=== PATIENT | male | born 1935 | race Caucasian/White ===

== ENCOUNTER → 2016-04-02 | Outpatient (CLI) | payer OTHER ==
[~2016-04-02] VITALS: Ht 182.9 cm; Wt 111.1 kg
[~2016-04-02] MED LIST: ACETAMINOPHEN-1 EAC1 PO; ALLOPURINOL 30300 M2 PO; AMARYL4 MG PO; ASPIR 8181 M1 PO; CALCIUM500 MG PO; CARVEDILOL12.5 MG PO; DIOVAN 80 MG TA80 M1 PO; DIOVAN320 MG PO; IBUPROFEN 600600 M1 PO; IRON325 PO; LASIX 20 MG TAB20 MG PO; LEVEMIR FL100 UNIT/2 SQ; METFORMIN HCL500 MG PO; NORCO 5-325 TA1 EACH PO; PLAVIX 75 MG TA75 M1 PO; POTASSIUM20 PO; SIMVASTATIN40 MG PO
--- NOTE | ~2016-04-02 | P ---
[facility] [place] [address] PROCEDURE REPORT Name: IRMA BLANCAS Room #: REG [facility].#: [id number] Admission: 04/02/16 Attend Phys: Paul Zhu MD Discharge: Date of : 34 Report #: [id number] THIS REPORT FOR: //name// CC: Alan Zhu PROCEDURE: ICD generator exchange. HISTORY OF PRESENT ILLNESS: The patient is an 80-year-old with history of ICD, his device is at [facility] who is here for generator exchange. ANESTHESIA: The patient underwent MAC anesthesia with no anesthesia related complications. DESCRIPTION OF PROCEDURE: The patient underwent informed consent. We discussed the details of the procedure including the risks, which include, but not limited to bleeding, infection, vascular damage, need for possible lead revisions. He understood these risks and is willing to proceed. The patient was brought to the EP laboratory in a fasting and sedated state and prepped and draped in a sterile fashion, received IV antibiotics. I injected lidocaine at the prior incision site. Incision was made and the pocket was opened, the old device was removed and disconnected from the device. A new device was connected and found to be functioning normally. The pocket was irrigated with vancomycin solution and a TV Compass antibiotic pouch was placed in the pocket. The pocket was then closed in 3 layers, 2-0 for the deep layer, 3-0 for the mid layer, 4-0 for the subcuticular layer. A surgical glue was placed to the outer skin layer. The explanted device was a Medtronic ICD. The newly implanted device was a [employer], model #[id number], serial #[id number]. The lead was a Medtronic model #6932, originally implanted on 06/26/1997, the lead demonstrated a R-wave of greater 12 millivolts, pacing impedance of 590 ohms, high voltage impedance of 71 ohms, pacing threshold 0.75 volts at 0.5 milliseconds. The device is programmed to the VVI 40 mode. The VT zone was programmed to this prior. CONCLUSIONS: 1. Successful generator exchange. 2. Satisfactory right ventricular pacing and sensing thresholds. 3. Implantation of antibiotic pouch into the pocket due to the patient's high risk for infection. <ELECTRONICALLY SIGNED> By: Paul Zhu MD 04/17/16 1225 [id number] 1806 Paul Zhu MD /nt
[2016-04-02 07:09] VITALS: BP 110/56
[2016-04-02 07:22] LABS: BASOPHILS 0.6 % (0.0-2.0); EOSINOPHILS 1.2 % (0.0-3.0); HEMATOCRIT 36.3 % (42.0-52.0); HEMOGLOBIN 12.1 gm/dL (14.0-18.0); LYMPHOCYTES 12.1 % (24.0-44.0); MCH 31.5 pg (26.0-34.0); MCHC 33.4 % (28.0-37.0); MCV 94.4 fL (80.0-100.0); MONOCYTES 8.8 % (1.0-8.0); PLATELET COUNT 364 thou/uL (150-400); POLYS 77.3 % (36.0-66.0); RBC 3.84 mil/uL (4.50-6.00); RDW 14.4 % (10.5-14.5)
[2016-04-02 07:25] LABS: MANUAL DIFF NO
[2016-04-02 07:34] LABS: CALCIUM 9.3 mg/dL (8.5-10.1); CREATININE 1.5 mg/dL (0.6-1.3); POTASSIUM 4.2 mmol/L (3.5-5.1)
[2016-04-02 07:50] LABS: APTT 30.9 Seconds (24.5-32.8); INR 1.3
== END ==
LOC: CATH 06:29
PROVIDERS: Internal Medicine Cardiovascular Disease
DX: I49.9 Cardiac arrhythmia, unspecified (principal); I25.5 Ischemic cardiomyopathy
CPT/HCPCS: 62110; 62900; 70005

== ENCOUNTER → 2016-07-28 | Outpatient (CLI) | payer OTHER | LOC: HYPER 07-20 16:23 | DX: E11.621 Type 2 diabetes mellitus with foot ulcer (principal); L97.511 Non-pressure chronic ulcer of other part of right foot limited to breakdown of skin; L97.521 Non-pressure chronic ulcer of other part of left foot limited to breakdown of skin; S81.802A Unspecified open wound, left lower leg, initial encounter; L84 Corns and callosities; M10.9 Gout, unspecified; E11.40 Type 2 diabetes mellitus with diabetic neuropathy, unspecified; Z95.0 Presence of cardiac pacemaker; Z79.4 Long term (current) use of insulin; Z79.84 Long term (current) use of oral hypoglycemic drugs; Z89.429 Acquired absence of other toe(s), unspecified side; Z87.891 Personal history of nicotine dependence; X58.XXXA Exposure to other specified factors, initial encounter; Y93.89 Activity, other specified; Y92.89 Other specified places as the place of occurrence of the external cause; Y99.8 Other external cause status ==

== ENCOUNTER → 2016-08-18 | Outpatient (CLI) | payer OTHER | LOC: HYPER 07:41 | DX: E11.621 Type 2 diabetes mellitus with foot ulcer (principal); L97.521 Non-pressure chronic ulcer of other part of left foot limited to breakdown of skin; L97.511 Non-pressure chronic ulcer of other part of right foot limited to breakdown of skin; E11.40 Type 2 diabetes mellitus with diabetic neuropathy, unspecified; M10.9 Gout, unspecified; L84 Corns and callosities; Z79.4 Long term (current) use of insulin; Z79.84 Long term (current) use of oral hypoglycemic drugs; Z87.891 Personal history of nicotine dependence ==

== ENCOUNTER → 2016-09-15 | Outpatient (CLI) | payer OTHER | LOC: HYPER 07:10 | DX: E11.621 Type 2 diabetes mellitus with foot ulcer (principal); L97.512 Non-pressure chronic ulcer of other part of right foot with fat layer exposed; L97.522 Non-pressure chronic ulcer of other part of left foot with fat layer exposed; E11.622 Type 2 diabetes mellitus with other skin ulcer; L97.821 Non-pressure chronic ulcer of other part of left lower leg limited to breakdown of skin; E11.40 Type 2 diabetes mellitus with diabetic neuropathy, unspecified; E11.59 Type 2 diabetes mellitus with other circulatory complications; L84 Corns and callosities; Z79.84 Long term (current) use of oral hypoglycemic drugs; Z95.0 Presence of cardiac pacemaker; Z89.429 Acquired absence of other toe(s), unspecified side; Z87.891 Personal history of nicotine dependence; Z79.4 Long term (current) use of insulin ==

== ENCOUNTER → 2016-09-30 | Outpatient (CLI) | payer OTHER | LOC: HYPER 06:54 | DX: E11.621 Type 2 diabetes mellitus with foot ulcer (principal); L97.512 Non-pressure chronic ulcer of other part of right foot with fat layer exposed; L97.522 Non-pressure chronic ulcer of other part of left foot with fat layer exposed; E11.622 Type 2 diabetes mellitus with other skin ulcer; L97.821 Non-pressure chronic ulcer of other part of left lower leg limited to breakdown of skin; E11.40 Type 2 diabetes mellitus with diabetic neuropathy, unspecified; L84 Corns and callosities; E11.59 Type 2 diabetes mellitus with other circulatory complications; M21.40 Flat foot [pes planus] (acquired), unspecified foot; Z79.4 Long term (current) use of insulin; Z79.84 Long term (current) use of oral hypoglycemic drugs; Z87.891 Personal history of nicotine dependence; Z95.0 Presence of cardiac pacemaker; Z89.429 Acquired absence of other toe(s), unspecified side ==

== ENCOUNTER → 2016-10-21 | Outpatient (CLI) | payer OTHER | LOC: HYPER 07:07 | DX: E11.621 Type 2 diabetes mellitus with foot ulcer (principal); L97.512 Non-pressure chronic ulcer of other part of right foot with fat layer exposed; L97.522 Non-pressure chronic ulcer of other part of left foot with fat layer exposed; E11.622 Type 2 diabetes mellitus with other skin ulcer; L97.821 Non-pressure chronic ulcer of other part of left lower leg limited to breakdown of skin; L84 Corns and callosities; E11.40 Type 2 diabetes mellitus with diabetic neuropathy, unspecified; Z79.84 Long term (current) use of oral hypoglycemic drugs; Z79.4 Long term (current) use of insulin; Z89.429 Acquired absence of other toe(s), unspecified side; Z95.0 Presence of cardiac pacemaker; Z87.891 Personal history of nicotine dependence ==

== ENCOUNTER → 2016-11-13 | Outpatient (CLI) | payer OTHER | LOC: HYPER 08:12 | DX: E11.621 Type 2 diabetes mellitus with foot ulcer (principal); L97.521 Non-pressure chronic ulcer of other part of left foot limited to breakdown of skin; L97.522 Non-pressure chronic ulcer of other part of left foot with fat layer exposed; E11.622 Type 2 diabetes mellitus with other skin ulcer; L97.821 Non-pressure chronic ulcer of other part of left lower leg limited to breakdown of skin; E11.40 Type 2 diabetes mellitus with diabetic neuropathy, unspecified; L84 Corns and callosities; M10.9 Gout, unspecified; Z79.84 Long term (current) use of oral hypoglycemic drugs; Z79.4 Long term (current) use of insulin; Z95.0 Presence of cardiac pacemaker; Z89.429 Acquired absence of other toe(s), unspecified side; Z87.891 Personal history of nicotine dependence ==

== ENCOUNTER → 2016-12-09 | Outpatient (CLI) | payer OTHER | LOC: HYPER 07:04 | DX: E11.621 Type 2 diabetes mellitus with foot ulcer (principal); L97.512 Non-pressure chronic ulcer of other part of right foot with fat layer exposed; L97.522 Non-pressure chronic ulcer of other part of left foot with fat layer exposed; E11.40 Type 2 diabetes mellitus with diabetic neuropathy, unspecified; L84 Corns and callosities; M10.9 Gout, unspecified; Z95.0 Presence of cardiac pacemaker; Z89.429 Acquired absence of other toe(s), unspecified side; Z79.84 Long term (current) use of oral hypoglycemic drugs; Z79.4 Long term (current) use of insulin; Z87.891 Personal history of nicotine dependence ==

== ENCOUNTER → 2017-01-06 | Outpatient (CLI) | payer OTHER | LOC: HYPER 06:51 | DX: E11.621 Type 2 diabetes mellitus with foot ulcer (principal); L97.522 Non-pressure chronic ulcer of other part of left foot with fat layer exposed; L97.512 Non-pressure chronic ulcer of other part of right foot with fat layer exposed; E11.622 Type 2 diabetes mellitus with other skin ulcer; L97.821 Non-pressure chronic ulcer of other part of left lower leg limited to breakdown of skin; E11.40 Type 2 diabetes mellitus with diabetic neuropathy, unspecified; Z79.84 Long term (current) use of oral hypoglycemic drugs; Z79.4 Long term (current) use of insulin; L84 Corns and callosities; Z87.891 Personal history of nicotine dependence; Z95.0 Presence of cardiac pacemaker ==

== ENCOUNTER → 2017-02-10 | Outpatient (CLI) | payer OTHER | LOC: HYPER 07:00 | DX: E11.621 Type 2 diabetes mellitus with foot ulcer (principal); L97.512 Non-pressure chronic ulcer of other part of right foot with fat layer exposed; L97.522 Non-pressure chronic ulcer of other part of left foot with fat layer exposed; E11.622 Type 2 diabetes mellitus with other skin ulcer; L97.821 Non-pressure chronic ulcer of other part of left lower leg limited to breakdown of skin; E11.40 Type 2 diabetes mellitus with diabetic neuropathy, unspecified; Z79.84 Long term (current) use of oral hypoglycemic drugs; Z79.4 Long term (current) use of insulin; L84 Corns and callosities; Z87.891 Personal history of nicotine dependence; Z95.0 Presence of cardiac pacemaker; Z89.429 Acquired absence of other toe(s), unspecified side ==

== ENCOUNTER → 2017-03-31 | Outpatient (CLI) | payer OTHER ==
[~2017-03-31] MED LIST changes: +ALLOPURINOL 10100 M2 PO; +AVAPRO75 MG PO; +ENOXAPARIN30 MG/0.1 SUBQ; +FIRVANQ50 MG/1 ML PO; +LEXAPRO 10 MG T10 M2 PO; +LIDOCAINE PAIN1 EACH TOP; +MELATONIN3 MG PO; +METOPROLOL SUCC50 MG PO; +MIRALAX17 GM PO; +NEPHRO-VITE RX1 TA1 PO; +NOVOLOG100 UNIT/1 SUBQ; +PRAVACHOL40 MG PO; +PRO-STAT LIQUID30 M1 PO; +PROCRIT20000 UNIT SUBQ; +PROTONIX40 M1 PO; +UNICOMPLEX M TA1 TA1 PO; +[UNRECOGNIZED DRUG - CODE]
== END ==
LOC: HYPER 06:35
DX: E11.621 Type 2 diabetes mellitus with foot ulcer (principal); L97.522 Non-pressure chronic ulcer of other part of left foot with fat layer exposed; L97.512 Non-pressure chronic ulcer of other part of right foot with fat layer exposed; E11.40 Type 2 diabetes mellitus with diabetic neuropathy, unspecified; L84 Corns and callosities; Z87.891 Personal history of nicotine dependence; Z95.0 Presence of cardiac pacemaker; Z79.84 Long term (current) use of oral hypoglycemic drugs; Z79.4 Long term (current) use of insulin

== ENCOUNTER → 2017-04-21 | Outpatient (CLI) | payer OTHER | LOC: HYPER 06:44 | DX: E11.621 Type 2 diabetes mellitus with foot ulcer (principal); L97.512 Non-pressure chronic ulcer of other part of right foot with fat layer exposed; L97.522 Non-pressure chronic ulcer of other part of left foot with fat layer exposed; E11.40 Type 2 diabetes mellitus with diabetic neuropathy, unspecified; L84 Corns and callosities; Z79.84 Long term (current) use of oral hypoglycemic drugs; Z79.4 Long term (current) use of insulin; Z95.0 Presence of cardiac pacemaker; Z87.891 Personal history of nicotine dependence ==

== ENCOUNTER → 2017-05-18 | Outpatient (CLI) | payer OTHER | LOC: HYPER 07:02 | DX: E11.621 Type 2 diabetes mellitus with foot ulcer (principal); L97.522 Non-pressure chronic ulcer of other part of left foot with fat layer exposed; L97.512 Non-pressure chronic ulcer of other part of right foot with fat layer exposed; E11.622 Type 2 diabetes mellitus with other skin ulcer; L97.821 Non-pressure chronic ulcer of other part of left lower leg limited to breakdown of skin; E11.40 Type 2 diabetes mellitus with diabetic neuropathy, unspecified; L84 Corns and callosities; Z87.891 Personal history of nicotine dependence; Z95.0 Presence of cardiac pacemaker; Z79.84 Long term (current) use of oral hypoglycemic drugs; Z79.4 Long term (current) use of insulin ==

== ENCOUNTER 2017-12-30 02:10 | Inpatient (IN) | payer OTHER ==
[~2017-12-30] VITALS: Ht 182.9 cm; Wt 100.8 kg
[2017-12-30] VITALS (82 sets, daily range): BP systolic 60–165; BP diastolic 32–90
--- NOTE | ~2017-12-30 | HC ---
[facility] [place] [address] CONSULTATION Name: IRMA BLANCAS Room #: 211-P ADM IN M.R.#: [id number] Admission: 12/30/17 Attend Phys: Lashae Hatfield Discharge: Date of : 34 Report #: [id number] THIS REPORT FOR: //name// CC: Nico Hatfield DATE OF SERVICE: 01/02/2018 REASON FOR CONSULTATION: Diabetic ulcer of right foot. 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 He has had diabetic foot ulcer in the past. Wound care is consulted for ulcers of the right foot. The patient was admitted with pneumonia and hypotension. PAST MEDICAL HISTORY: Coronary artery disease, status post coronary bypass graft surgery, history of congestive heart failure, history of hypertension, history of diabetes mellitus type 2, end-stage renal disease with hemodialysis, history of peripheral vascular disease of lower extremities, leading to left above-knee amputation, and diabetic foot ulcers of the right foot in the past. PAST SURGICAL HISTORY: Left above-knee amputation, vascular graft surgery of the right leg, coronary artery bypass graft surgery. Implantable defibrillator, right lower extremity bypass graft surgery in 2001, debridement of right foot diabetic ulcer in 2004, 2005. ALLERGIES: AMLODIPINE, QUINAPRIL, TICLOPIDINE. MEDICATIONS: Include metformin, Amaryl, Glucophage, calcium, Zocor, Zyloprim, iron, carvedilol, aspirin, Lasix, insulin detemir, Plavix, Avapro, hydrocodone, Lexapro, melatonin, Pravachol, Protonix. PHYSICAL EXAMINATION: GENERAL: Shows an elderly gentleman, alert and conversant. HEENT: Mucous membranes are moist. NECK: Supple. ABDOMEN: Soft. Blood pressure is stable. EXTREMITIES: Examination of the lower extremities shows a well-healed left above-knee amputation with all sutures out, just about 2 months old, is completely healed. Examination of the right foot shows a thick callus over the right first metatarsal head with small opening and some pus draining. Wound cultures were done. There is also a dense thick callus of the second metatarsal [address] [address] CONSULTATION Name: IRMA BLANCAS Room #: 211-P ADM IN M.R.#: [id number] Admission: 12/30/17 Attend Phys: Lashae Hatfield Discharge: Date of : 34 Report #: [id number] head, third metatarsal head, and fourth metatarsal head. Informed consent was obtained and these wounds were debrided, exposing a 1.2 x 1 x 0.2 cm ulcer of the right first metatarsal head and a 1 cm x 1 cm x 0.2 cm ulcer of the second metatarsal head. There was no exposed bone. There was no tunneling. Wound cultures were taken. Callus was removed from the third and fourth metatarsal head. There was no wound underneath. IMPRESSION: Diabetic foot ulcers times 2 of the right first and second metatarsal head. No tunneling, no exposed bone, no need for MRI. PLAN: Wound culture taken, gentamicin 0.1% ointment, Aquacel and foam at border, offload. Arterial studies of lower extremities are ordered. Wound care team will follow. <ELECTRONICALLY SIGNED> By: Glen Uriostegui MD 01/04/18 0808 1743 0050 Glen Uriostegui MD /nt
--- NOTE | ~2017-12-30 | EKG ---
[address] [address] ELECTROCARDIOGRAM REPORT Name: YONNYIRMA TOLBERT Room #: 238-P ADM IN M.R.#: [id number] Admission: 12/30/17 Attend Phys: Lashae Hatfield Discharge: Date of : 34 Report #: [id number] THIS REPORT FOR: //name// [facility] ED Test Date: 2017-12-30 Test Time: 02:52:17 Pat Name: IRMA BLANCAS Department: Room: 238 Gender: M Carpenter Mate: ELIZABETH KAN : 1935 Requested By: Alan Ma Order Number: [id number] MD: Paul Zhu Measurements Intervals Beccaria Rate: 69 P: NE: QRS: -83 QRSD: 142 T: 35 QT: 465 QTc: 499 Interpretive Statements Atrial fibrillation Right bundle branch block Compared to ECG 08/07/2014 11:49:10 Right bundle-branch block now present Sinus rhythm no longer present Poor R-wave progression no longer present Electronically Signed On 12-31-2017 8:12:05 CDT by Paul Zhu [email or web address] <ELECTRONICALLY SIGNED> By: Paul Zhu MD 12/31/17811 1 1 Paul Zhu MD /EPI
--- NOTE | ~2017-12-30 | 2DMMODE ---
[facility] [address] [place] [address] 2 D/M-MODE ECHOCARDIOGRAM Name: YONNYIRMA TOLBERT Room #: 238-P ADM IN M.R.#: [id number] Admission: 12/30/17 Attend Phys: Lashae Miles Discharge: Date of : 34 Date of Service: 12/30/17 1100 Report #: [id number] THIS REPORT FOR: //name// APPROVED REPORT Study performed: 12/30/2017 09:46:21 EXAM: Comprehensive 2D, Doppler, and color-flow Echocardiogram Patient Location: ICU Room #: 238 Status: routine BSA: 2.29 HR: 72 bpm BP: 101/48 mmHg Rhythm: Atrial Fibrillation Other Information Study Quality: Poor Technically limited study due to poor window availability. Indications Recent cardiac arrest, hypotension. Hx: ICD, CABG, ISCM, PVD, HLP Echo Enhancing Agent Indication: Endocardial border delineation Agent(s) / Amount(s) Used: Optison 6 cc 2D Dimensions RVDd: 40.84 mm IVSd: 9.50 (7-11mm) LVOT Diam: 21.88 (18-24mm) LVDd: 43.11 mm PWd: 9.31 (7-11mm) LVDs: 32.18 (25-40mm) Aortic Root: 36.84 mm Volumes Left Atrial Volume (Systole) Single Plane 4CH: 44.98 mL Single Plane 2CH: 48.16 mL LA ESV Index: 21.00 mL/m2 Aortic Valve AoV Peak James.: 1.11 m/s AO Peak Gr.: 4.97 mmHg LVOT Max P.54 mmHg [facility] [address] [address] 2 D/M-MODE ECHOCARDIOGRAM Name: YONNYIRMA TOLBERT Room #: 238-P ADM IN M.R.#: [id number] Admission: 12/30/17 Attend Phys: Lashae Miles Discharge: Date of : 34 Date of Service: 12/30/17 1100 Report #: [id number] LVOT Max V: 1.06 m/s MICHAEL Vmax: 3.59 cm2 Mitral Valve MV Decel. Time: 268.53 ms MV E Max James.: 1.64 m/s Pulmonary Valve PV Peak James.: 0.93 m/s PV Peak Gr.: 3.47 mmHg Tricuspid Valve TR Peak James.: 2.42 m/s RAP Estimate: 10.00 mmHg TR Peak Gr.: 23.59 mmHg PA Pressure: 34.00 mmHg Left Ventricle The left ventricle is normal size. Regional wall motion is not well visualized but grossly normal. There is normal left ventricular wall thickness. The left ventricular systolic function appears normal Estimated LVEF is 50%. This study is not technically sufficient to allow evaluation of the LV diastolic function due to atrial fibrillation. Right Ventricle Right ventricle is not well visualized but appears grossly normal in size and function. Device lead is present in the right ventricle. Atria The left atrium size is normal. The right atrium size is normal. Aortic Valve Aortic valve is calcified but not well visualized. No aortic regurgitation is present. There is no aortic valvular stenosis. Mitral Valve Moderate mitral annular calcification. Trace mitral regurgitation. No evidence of mitral valve stenosis. Tricuspid Valve The tricuspid valve is normal in structure. Moderate tricuspid regurgitation. Estimated PAP is 35mmHg. Pulmonic Valve Pulmonic valve is not well visualized. [facility] [address] [place] [address] 2 D/M-MODE ECHOCARDIOGRAM Name: IRMA BLANCAS Room #: 238-P ADM IN M.R.#: [id number] Admission: 12/30/17 Attend Phys: Lashae Miles Discharge: Date of : 34 Date of Service: 12/30/17 1100 Report #: [id number] Great Vessels The aortic root is normal in size. Ascending aorta is not well visualized. IVC is dilated and collapses <50% with inspiration. Pericardium There is no pericardial effusion. <Conclusion> The left ventricular systolic function appears normal Estimated LVEF is 50%. Aortic valve is calcified but not well visualized. No aortic regurgitation or stenosis Moderate mitral annular calcification. Trace mitral regurgitation. Moderate tricuspid regurgitation. Estimated pulmonary artery pressure of 35mmHg. There is no pericardial effusion. <ELECTRONICALLY SIGNED> By: iNco Haywood MD, FACC 12/30/171099 1100 99 Nico Haywood MD, FAC /INF
--- NOTE | ~2017-12-30 | HC ---
[facility] [place] [address] CONSULTATION Name: IRMA BLANCAS Room #: 238-P ADM IN M.R.#: [id number] Admission: 12/30/17 Attend Phys: Lashae Hatfield Discharge: Date of : 34 Report #: [id number] THIS REPORT FOR: //name// CC: Nico Hatfield DATE OF SERVICE: 12/30/2017 INFECTIOUS DISEASES CONSULTATION REASON FOR CONSULTATION: I was asked to evaluate concerning shock and pneumonia. HISTORY OF PRESENT ILLNESS: The patient was an 82-year-old diabetic with coronary artery disease, peripheral vascular disease and peripheral neuropathy, who was hospitalized at [facility] over the past month. He had diabetic foot infection and developing gangrene. Initially at [facility] and transferred to [facility]. He suffered cardiac arrest on 2 episodes. Respiratory failure, acute renal failure and progression of his left lower extremity gangrene. He was ultimately extubated. He remains on dialysis via right chest dialysis catheter and required a left AKA. He then went to rehab and home. While at home, he did poorly with multiple falls out of his wheelchair, found to be hypoglycemic. He has had ongoing diarrhea and incontinence. Reports no nausea or vomiting. He has had no abdominal pain. He has been with poor appetite. No blood in the stools. He remains incontinent. Stools have been 2-3 a day. Denies any fever, chills or sweats. He was having some chest discomfort with radiation to his right shoulder. This has resolved. He has been short of breath. No cough or sputum production. No pleuritic chest pain. No hemoptysis. There have been no syncopal episodes. On presentation to the Emergency Room via EMS, he was found to be hypotensive and now was on vasopressors. He urinates once a day, small volume. There has been no back or flank pain. No increased drainage from his left AKA stump. Chronic wound to the plantar aspect of his right foot for last several months. He does [facility] Marcelo [facility] as well as Dr. King, Podiatry. Diabetic control has been erratic. He had blood sugar down to 10 yesterday. REVIEW OF SYSTEMS: A 10-point review otherwise negative. PAST MEDICAL HISTORY: Diabetes, peripheral vascular disease, peripheral neuropathy, chronic wounds to his feet, right great toe amputation remotely, peripheral bypass, cardiomyopathy and coronary artery bypass. FAMILY HISTORY: Noncontributory. SOCIAL HISTORY: Past smoker. No significant alcohol intake. Previously worked [address] [address] CONSULTATION Name: WILLOWPOOLMarilynIRMA TOLBERT Room #: 238-P [facility] IN M.R.#: [id number] Admission: 12/30/17 Attend Phys: Lashae Hatfield Discharge: Date of : 34 Report #: [id number] for [employer]. ALLERGIES: TICLOPIDINE, QUINAPRIL AND AMLODIPINE. MEDICATIONS: As noted on his MAR, including escitalopram, Protonix, pravastatin, amiodarone, allopurinol, gabapentin, cardia, metformin, irbesartan, carvedilol, clopidogrel, glimepiride and Lasix. PHYSICAL EXAMINATION: GENERAL: He was lying in bed, pale, moderately obese, alert and conversant. VITAL SIGNS: Blood pressure was stable on Levophed drip. Heart rate 73, respiratory rate 16 and MAP of 74. HEENT: Atraumatic. Eyes, no conjunctivitis or scleral icterus. Mouth, without mucositis or ulceration. NECK: Supple. No thyromegaly. No JVD. SKIN: Mild venous stasis dermatitis, right pretibial skin. Ulceration over the plantar aspect of his right first metatarsal head. No significant drainage. Mild perianal dermatitis. LYMPH: No palpable adenopathy. BACK: Midline, with no percussion tenderness. No CVA tenderness. LUNGS: Decreased breath sounds in the right base posteriorly. No consolidation. HEART: Regular, without appreciable murmur, gallop or rub. CHEST: Right chest tunneled dialysis catheter with unremarkable tunnel and exit site. Left chest defibrillator pocket unremarkable. ABDOMEN: Soft, nontender with no hepatosplenomegaly or mass. EXTREMITIES: Left AKA incision well approximated, with no cellulitis or fluctuance. Right lower extremity with 1+ edema, pretibial venous stasis changes, absence of the right first toe. Several calluses over the plantar aspect of his metatarsals with ulceration, first metatarsal plantar aspect. NEUROLOGIC: Cranial nerves intact. Strength in his upper extremities normal. Reasonable strength in right lower extremity with decreased sensation in his toes. Mood normal. LABORATORY STUDIES: Chest x-ray, right lower lobe atelectasis, infiltrate with elevated right hemidiaphragm, infiltrate in the right upper lung as well. BNP 12,457. CMP: Sodium 133, potassium 3.2, bicarbonate 25 and creatinine 2.3. Alkaline phosphatase 234, ALT 16, AST 30. Albumin at 2.4. Hemoglobin 9.3, WBC 7.4 and platelet count 209,000. IMPRESSION: An 82-year-old with multiple comorbidities, including cardiomyopathy and recent cardiac arrest, diabetes, renal failure and recent above-knee amputation for gangrene, now with shock. I am suspecting a combination of septic and cardiogenic. He does have anemia as well, with no evidence of gross GI bleeding. Source of infection would include pneumonia of the right lung with consideration of healthcare-associated aspiration pneumonia. [facility] [address] [place] [address] CONSULTATION Name: IRMA BLANCAS Room #: 238-P ADM IN M.R.#: [id number] Admission: 12/30/17 Attend Phys: Lashae Hatfield Discharge: Date of : 34 Report #: [id number] Diarrhea with Clostridium difficile colitis highly likely. With acute renal failure, urinary tract infection could also present in this fashion. No evidence for left BKA surgical site infection. He has chronic wounds to his right foot, which do not appear acutely infected. Doubt other intra-abdominal source of infection considering the patient's abdomen examination was benign. RECOMMENDATIONS: Continue full support with fluids, vasopressors. Nephrology to dialyze as necessary. Cardiac workup to include echocardiogram will be done. We will obtain cultures of blood, urine, sputum, stool for C. difficile PCR and culture. Follow up chest x-ray. We will begin empiric antibiotics with vancomycin IV and p.o. along with Zosyn and azithromycin. We will check procalcitonin, MRSA screen and viral respiratory panel. <ELECTRONICALLY SIGNED> By: Hardik Almanzar MD 12/31/17 0820 0957 1403 Hardik Almanzar MD /nt
--- NOTE | ~2017-12-30 | HC ---
[facility] [place] [address] CONSULTATION Name: IRMA BLANCAS Room #: 238-P ADM IN M.R.#: [id number] Admission: 12/30/17 Attend Phys: Lashae Hatfield Discharge: Date of : 34 Report #: [id number] THIS REPORT FOR: //name// CC: Nico Hatfield Nephrology Consultation ATTENDING PHYSICIAN: Lashae Hatfield MD REASON FOR CONSULTATION: Acute kidney injury. HISTORY OF PRESENT ILLNESS: This 82-year-old gentleman, longstanding diabetic, with longstanding coronary artery disease, has had a defibrillator since 1997, was recently admitted at [facility], had a cardiorespiratory arrest with prolonged recovery, has acute renal failure, and has been on dialysis for 5 or 6 weeks. He was in a rehab facility for several weeks, discharged 2 days before this admission. Course at home complicated by hypoglycemia and hypotension and now admitted here with hypotension and hypoglycemia. PAST MEDICAL HISTORY: Longstanding diabetes mellitus, left foot infection, eventually requiring above the knee amputation recently at [facility]. He has had coronary bypass in 1997 after getting stents, right big toe amputation in 2001. He has had lower extremity bypass, ischemic cardiomyopathy, and peripheral neuropathy from the diabetes. SOCIAL HISTORY: Remote smoker. No substantial alcohol. CURRENT HOME MEDICATIONS: Include escitalopram 10 mg daily, Protonix 40 mg daily, pravastatin 80 mg daily, amiodarone 200 mg daily, allopurinol 100 mg daily, gabapentin 100 mg daily, Cartia XT 240 mg daily, metformin 850 mg daily, irbesartan 75 mg daily, carvedilol 12.5 mg daily, clopidogrel 75 mg daily, glimepiride 4 mg daily, and furosemide 40 mg daily. FAMILY HISTORY: Positive for diabetes, but not renal disease. REVIEW OF SYSTEMS: GENERAL: The patient is arousable despite being on high dose of pressors. EYES: His vision has been very poor since his cardiorespiratory arrest. ENT: He swallows okay. Denies mouth sores or ulcers. Hearing seems to be okay. ENDOCRINE: Positive for the diabetes. RESPIRATORY: Currently, he is not short-winded lying flat. CARDIAC: No chest pain. GASTROINTESTINAL: He has had a poor appetite with lots of diarrhea. GENITOURINARY: Not making much urine at the current time. [facility] [address] [facility] [address] CONSULTATION Name: IRMA BLANCAS Room #: 238-P [facility] IN M.R.#: [id number] Admission: 12/30/17 Attend Phys: Lashae Hatfield Discharge: Date of : 34 Report #: [id number] NEUROLOGIC: Peripheral neuropathy and cognitive deficits since his cardiorespiratory arrest. MUSCULOSKELETAL: He has had amputation on the left. PHYSICAL EXAMINATION: GENERAL: This is a chronically ill-appearing gentleman, somewhat overweight. SKIN: He has got poorly healing wound of his left AKA and he has got 2 healing ulcers on his right foot showing the AKA. HEENT: Extraocular movements are full, but vision is poor. Hearing is intact. Mucous membranes are dry. NECK: Veins are flat. CHEST: Shows some rhonchi, more on the right than the left. HEART: Irregularly irregular. ABDOMEN: Soft and nontender. EXTREMITIES: Show 1+ brawny edema of the right leg, the left AKA. LABORATORY DATA: The hemoglobin is 9.3, white count is only 7.4. Sodium 133, potassium 3.2, chloride 101, bicarbonate 25, creatinine is 2.3. ASSESSMENT AND PLAN: 1. Acute kidney injury. He has had kidney shut down since his cardiorespiratory arrest. I suspect he had some underlying diabetic nephropathy before that, questionable as to whether he will have recovery. We will watch him closely for the need for dialysis. 2. Hypotension, a little unclear. He is on multiple medications. Certainly sepsis must be ruled out and he probably will need cultures and antibiotics. 3. Hypoglycemia. He is on glimepiride and metformin and those will have to be stopped. He is getting some D5 in his IV. 4. Status post cardiorespiratory arrest with cognitive deficits. 5. History of ventricular tachycardia with implanted defibrillator. 6. Chronic atrial fibrillation. 7. History of ischemic cardiomyopathy. 8. Peripheral arterial disease, status post left above-knee amputation. 9. Foot wounds on the right. By: [id number] [id number] Osvaldo Novak MD /nt
--- NOTE | ~2017-12-30 | HC ---
[facility] [place] [address] CONSULTATION Name: IRMA BLANCAS Room #: 211-P ADM IN M.R.#: [id number] Admission: 12/30/17 Attend Phys: Lashae Hatfield Discharge: Date of : 34 Report #: [id number] THIS REPORT FOR: //name// CC: Nico Hatfield DATE OF SERVICE: 01/07/2018 ELECTROPHYSIOLOGY CONSULTATION REASON FOR CONSULTATION: ICD lead fracture. HISTORY OF PRESENT ILLNESS: The patient is an 82-year-old, with history of coronary artery disease, who had a prior VF arrest, then underwent CABG and ICD implantation. 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 He was sent to rehab, but then presented here to [facility] with sepsis with C. diff colitis. He was on pressors in the ICU for a period of time and has now since recovered into the CCU, he is feeling better. He denies any chest pain. His shortness of breath is stable. Denies PND or orthopnea. He denies presyncope or syncope. PAST MEDICAL HISTORY: As reviewed above. SOCIAL HISTORY: Does not smoke. FAMILY HISTORY: Noncontributory. ALLERGIES: Reviewed. MEDICATIONS: Have been reviewed. REVIEW OF SYSTEMS: A 12-point review of systems was performed, and it was negative other than mentioned above. PHYSICAL EXAMINATION: VITAL SIGNS: Temperature is 36.4, pulse 85, respirations 18, blood pressure 143/76, sats 99%. GENERAL: In no acute distress. HEENT: Oropharynx clear. CARDIOVASCULAR: Irregularly irregular. LUNGS: Clear to auscultation bilaterally. ABDOMEN: Soft, nontender, nondistended, no hepatosplenomegaly. [facility] [address] [place] [address] CONSULTATION Name: IRMA BLANCAS Room #: 211-P [facility] IN M.R.#: [id number] Admission: 12/30/17 Attend Phys: Lashae Hatfield Discharge: Date of : 34 Report #: [id number] EXTREMITIES: No clubbing, cyanosis or edema. He has jsavc-oyh-lcnx amputation. His 12-lead EKG shows atrial fibrillation with a right bundle branch block morphology. His device interrogation was reviewed. He did have one recent ICD shock, which appeared to be for atrial fibrillation with rapid ventricular response. He has also had some episodes of atrial fibrillation that has been ATP'd and the ATP did not terminate the arrhythmia and it continued. The patient continued in atrial fibrillation. The patient has a [employer] Fortify ICD, which is attached to a Medtronic 6932 Sprint lead. His last generator change was in March 2016. His lead was placed in June 1997. He is programmed to a VVI mode. His ICD lead shows an impedance of greater than 7000. RV coil is 42 ohms. There are episodes of documented noise on the pace sense portion of the ICD lead. It appears that this impedance change occurred sometime in July. ASSESSMENT: 1. Implantable cardioverter defibrillator lead fracture. 2. Resolved ischemic cardiomyopathy, ejection fraction 50%. 3. Permanent atrial fibrillation. 4. Recent sepsis. 5. End-stage renal disease. 6. Active Clostridium difficile colitis. In summary, the patient is an 82-year-old with ICD implanted for VFib followed by a CABG and ICD implantation. He has never had ICD shock for ventricular arrhythmia. He has had some recent inappropriate ICD shocks for atrial fibrillation. The patient does have evidence of a lead fracture. We discussed multiple options. Options include undergoing lead revision and we discussed the risks and benefits of this, which include, but are not limited to, bleeding, infection, pneumothorax and cardiac perforation. We also discussed a conservative approach given his multiple current comorbidities and active infection and his high risk of having an infection with a generator exchange. At this time, it was decided against proceeding with lead revision. We also discussed placement of a LifeVest. He is not interested in wearing this. I will therefore have him follow with Dr. Haywood. <ELECTRONICALLY SIGNED> By: Paul Zhu MD 01/10/18 1446 0855 0018 Paul Zhu MD /nt
--- NOTE | ~2017-12-30 | P ---
[facility] [place] [address] PROCEDURE REPORT Name: IRMA BLANCAS Room #: 211-P ADM IN M.R.#: [id number] Admission: 12/30/17 Attend Phys: Lashae Hatfield Discharge: Date of : 34 Report #: [id number] THIS REPORT FOR: //name// CC: Nico Hatfield DATE OF SERVICE: 01/02/2018 PREOPERATIVE DIAGNOSIS: Diabetic ulcer of right foot. POSTOPERATIVE DIAGNOSES: Diabetic ulcer of right foot with diabetic ulcer of right foot first and second metatarsal heads. PROCEDURE: Sharp excisional debridement with scalpel and curette of callus skin and subcutaneous tissue down to a healthy bleeding tissue. ANESTHESIOLOGIST AND CRITICAL CARE: Glen Uriostegui M.D. ANESTHESIA: None. INDICATIONS: The patient is an 82-year-old gentleman who I have been consulted for diabetic foot ulcers. He is status post left above-knee amputation. He is in the ICU. Informed consent was obtained for excisional debridement of right foot ulcer. DESCRIPTION OF PROCEDURE: Without the need for anesthesia, scalpel and sharp curette were used to debride callus and ulcers over the right first and second metatarsal heads. The patient has had well-healed right great toe amputation in the past. There was a thick callus over the right first metatarsal head, with some draining pus, which was cultured. Scalpel and sharp curette were used to debride off all overlying callus, exposing a 1.2 cm x 1 cm x 0.2 cm deep ulcer. Callus and surrounding skin were debrided away and the base of the ulcer was debrided down to healthy bleeding tissue. There was no tunneling, no exposed bone and no sign of deep infection. Attention was then turned to the second metatarsal head. Callus was pared away, exposing a 1 cm x 1 cm diabetic foot ulcer. Subcutaneous debridement was done to bleeding tissue. Callus over the third and fourth metatarsal heads was debrided away. Wounds of the first and second metatarsal heads were treated [address] [address] PROCEDURE REPORT Name: IRMA BLANCAS Room #: 211-P ADM IN M.R.#: [id number] Admission: 12/30/17 Attend Phys: Lashae Hatfield Discharge: Date of : 34 Report #: [id number] with gentamicin 0.1% ointment, Aquacel and a foam border. Wound cultures were sent. The patient tolerated procedure well. <ELECTRONICALLY SIGNED> By: Glen Uriostegui MD 01/04/18 0808 1732 0041 Glen Uriostegui MD /nt
--- NOTE | ~2017-12-30 | EKG ---
[address] [place] [employer] [address] ELECTROCARDIOGRAM REPORT Name: IRMA BLANCAS Room #: 238-P ADM IN M.R.#: [id number] Admission: 12/30/17 Attend Phys: Lashae Hatfield Discharge: Date of : 34 Report #: [id number] THIS REPORT FOR: //name// [facility] Test Date: 2018-01-03 Test Time: 08:32:36 Pat Name: IRMA BLANCAS Department: Room: 238 P Gender: M Cover Creaser: THANG : 1935 Requested By: Nico Haywood Order Number: [id number] MD: Nico Haywood Measurements Intervals [place]on Rate: 100 P: CT: QRS: -112 QRSD: 156 T: 8 QT: 399 QTc: 515 Interpretive Statements Atrial fibrillation Right bundle branch block Compared to ECG 12/30/2017 02:52:17 No significant changes Electronically Signed On 01-03-2018 8:42:20 CDT by Nico Haywood [email or web address] <ELECTRONICALLY SIGNED> By: Nico Haywood MD, [facility] 01/03/18 0842 D: 10/831 1 Nico Haywood MD, FACC /EPI
--- NOTE | ~2017-12-30 | PATH ---
[facility] [address] [address] PATHOLOGY RPT PROCEDURE Name: IRMA BLANCAS Room #: 211-P ADM IN M.R.#: [id number] Admission: 12/30/17 Date of : 34 Discharge: Report #: [id number] Path Case #: [id number] Note [facility] Accession Number: [id number] TESTS RESULT FLAG UNITS REF RANGE LAB Clinician Provided Cytology Information No. of containers..01 Other (Miscellaneous) Source: 01 PLEURAL FLUID DIAGNOSIS: 02 PLEURAL FLUID NEGATIVE FOR MALIGNANT CELLS. MESOTHELIAL CELLS ARE PRESENT. THIS INTERPRETATION INCLUDES EVALUATION OF A CELL BLOCK. Signed out by: 02 Ivan Granados MD, Pathologist NPI- [id number] Performed by: 01 Jaymie Barragan, Drawbench Operator Helper ([facility]) Gross description: 01 15 ML, YELLOW, CLEAR /LCS FLAG LEGEND: L-Low Normal,H-High Normal,LL-Alert Low,HH-Alert High <-Panic Low,>-Panic High,A-Abnormal,AA-Critical Abnormal Performed at: 01 [facility] [address] [facility] [address] [place] [address] Emanuel South MD, [address] [address] Jn Walls MD, Specimen Comment: A courtesy copy of this report has been sent to Specimen Comment: [phone]. Specimen Comment: Report sent to Performed at: 01 [facility] [address] [facility] [address], [place], [place] [id number] MD Emanuel South MD Phone: [phone]
[~2017-12-30 02:10] MED LIST changes: -ALLOPURINOL 10100 M2 PO; -AVAPRO75 MG PO; -ENOXAPARIN30 MG/0.1 SUBQ; -FIRVANQ50 MG/1 ML PO; -LEXAPRO 10 MG T10 M2 PO; -LIDOCAINE PAIN1 EACH TOP; -MELATONIN3 MG PO; -METOPROLOL SUCC50 MG PO; -MIRALAX17 GM PO; -NEPHRO-VITE RX1 TA1 PO; -NOVOLOG100 UNIT/1 SUBQ; -PRAVACHOL40 MG PO; -PRO-STAT LIQUID30 M1 PO; -PROCRIT20000 UNIT SUBQ; -PROTONIX40 M1 PO; -UNICOMPLEX M TA1 TA1 PO; -[UNRECOGNIZED DRUG - CODE]
[2017-12-30 02:46] LABS: HEMOGLOBIN 9.3 gm/dL (14.0-18.0); MCH 32.1 pg (26.0-34.0); MCV 100.2 fL (80.0-100.0); RBC 2.9 mil/uL (4.50-6.00); RDW 18.6 % (10.5-14.5); WBC 7.4 thou/uL (4.0-11.0)
[2017-12-30 02:56] LABS: ANION GAP 7 mmol/L (7-16); BUN 11 mg/dL (7-18); CALCIUM 8.3 mg/dL (8.5-10.1); CHLORIDE 101 mmol/L (98-107); CO2 25 mmol/L (21-32); CREATININE 2.3 mg/dL (0.7-1.3); GLUCOSE 67 mg/dL (74-106); POTASSIUM 3.2 mmol/L (3.5-5.1); SODIUM 133 mmol/L (136-145)
[2017-12-30] MEDS ORDERED: AVAPRO75 MG PO (03:03)
[2017-12-30] MEDS ORDERED: [UNRECOGNIZED DRUG - CODE] (03:03)
[2017-12-30 03:04] LABS: ALBUMIN 2.4 g/dL (3.4-5.0); SGOT 30 U/L (15-37); SGPT 16 U/L (30-65); TOTAL BILIRUBIN 0.4 mg/dL (<0.1-1.0); TOTAL PROTEIN 5.9 g/dL (6.4-8.2); TROPONIN-I <0.06 ng/mL (<0.06)
[2017-12-30] MEDS ORDERED: LIDOCAINE PAIN1 EACH TOP (03:04)
[2017-12-30] MEDS ORDERED: LEXAPRO 10 MG T10 M2 PO (03:04)
[2017-12-30] MEDS ORDERED: NORCO 5-325 TA1 EACH PO (03:04)
[2017-12-30] MEDS ORDERED: NEPHRO-VITE RX1 TA1 PO (03:05)
[2017-12-30] MEDS ORDERED: UNICOMPLEX M TA1 TA1 PO (03:05)
[2017-12-30] MEDS ORDERED: MELATONIN3 MG PO (03:05)
[2017-12-30] MEDS ORDERED: MIRALAX17 GM PO (03:06)
[2017-12-30] MEDS ORDERED: PRO-STAT LIQUID30 M1 PO (03:06)
[2017-12-30] MEDS ORDERED: PRAVACHOL40 MG PO (03:06)
[2017-12-30] MEDS ORDERED: PROTONIX40 M1 PO (03:07)
[2017-12-30 11:10] LABS: BASOPHILS 0.3 % (0.0-2.0); EOSINOPHILS 0.2 % (0.0-3.0); HEMATOCRIT 31.3 % (42.0-52.0); HEMOGLOBIN 10.4 gm/dL (14.0-18.0); LYMPHOCYTES 11.5 % (24.0-44.0); MCH 33.5 pg (26.0-34.0); MCHC 33.2 g/dL (28.0-37.0); MCV 100.8 fL (80.0-100.0); RDW 19.2 % (10.5-14.5); WBC 14.7 thou/uL (4.0-11.0)
[2017-12-30 11:11] LABS: PLATELET COUNT 315 thou/uL (150-400)
[2017-12-30 11:26] LABS: ALBUMIN 2.6 g/dL (3.4-5.0); CALCIUM 8.3 mg/dL (8.5-10.1); CREATININE 2.5 mg/dL (0.7-1.3); PHOSPHORUS 2.6 mg/dL (2.5-4.9); POTASSIUM 3.4 mmol/L (3.5-5.1)
[2017-12-30 19:04] LABS: URINE BILIRUBIN NEGATIVE (Negative); URINE BLOOD 1+ (Negative); URINE GLUCOSE-RANDOM* NEGATIVE (Negative); URINE KETONES NEGATIVE (Negative); URINE NITRITE-REFLEX NEGATIVE (Negative); URINE PROTEIN (DIPSTICK) 1+ (Negative); URINE SPECIFIC GRAVITY 1.025 (1.005-1.035); URINE UROBILINOGEN 0.2 E.U./dl (0.2-1.0)
[2017-12-30 19:05] LABS: URINE CLARITY HAZY; URINE COLOR AMBER; URINE LEUKOCYTES-REFLEX 1+ (Negative)
[2017-12-30 19:11] LABS: BACTERIA-REFLEX None Seen /HPF (None Seen); CASTS None Seen /LPF (None Seen); CRYSTALS None Seen /LPF (None Seen); SQUAMOUS None Seen /LPF (0-3); URINE RBC 0-2 Rare /HPF (0-2); URINE WBC-REFLEX >25 Many /HPF (0-5)
[2017-12-30 19:12] LABS: YEAST-REFLEX Present (None Seen)
[2017-12-31] VITALS (33 sets, daily range): BP systolic 92–140; BP diastolic 39–75
[2017-12-31 05:47] LABS: HEMATOCRIT 30.9 % (42.0-52.0); HEMOGLOBIN 10.3 gm/dL (14.0-18.0); MCHC 33.2 g/dL (28.0-37.0); MCV 99.7 fL (80.0-100.0); PLATELET COUNT 304 thou/uL (150-400); RDW 18.9 % (10.5-14.5); WBC 12.2 thou/uL (4.0-11.0)
[2017-12-31 05:59] LABS: ALBUMIN 2.3 g/dL (3.4-5.0); CREATININE 2.8 mg/dL (0.7-1.3); PHOSPHORUS 2.8 mg/dL (2.5-4.9); POTASSIUM 3.8 mmol/L (3.5-5.1)
[2017-12-31 08:10] LABS: ABSOLUTE NEUTROPHILS 8.4 thou/uL (1.4-8.2)
[2017-12-31 08:11] LABS: ANISOCYTOSIS 2+
[2018-01-01] VITALS (67 sets, daily range): BP systolic 79–132; BP diastolic 32–74
[2018-01-01 09:27] LABS: HEMOGLOBIN 9.9 gm/dL (14.0-18.0); MCH 32.7 pg (26.0-34.0); RBC 3.03 mil/uL (4.50-6.00); RDW 18.9 % (10.5-14.5); WBC 6.9 thou/uL (4.0-11.0)
[2018-01-01 09:29] LABS: PLATELET COUNT 199 thou/uL (150-400)
[2018-01-01 09:41] LABS: ALBUMIN 2.2 g/dL (3.4-5.0); CALCIUM 8.4 mg/dL (8.5-10.1); CREATININE 3.3 mg/dL (0.7-1.3); PHOSPHORUS 3.3 mg/dL (2.5-4.9); POTASSIUM 3.3 mmol/L (3.5-5.1)
[2018-01-01 10:16] LABS: ABSOLUTE NEUTROPHILS 4.1 thou/uL (1.4-8.2); PLATELET ESTIMATE NORMAL
[2018-01-02] VITALS (42 sets, daily range): BP systolic 70–120; BP diastolic 41–85
[2018-01-02 06:48] LABS: ALBUMIN 2.1 g/dL (3.4-5.0); CALCIUM 8.1 mg/dL (8.5-10.1); CREATININE 3.7 mg/dL (0.7-1.3); PHOSPHORUS 3.7 mg/dL (2.5-4.9); POTASSIUM 3.1 mmol/L (3.5-5.1)
[2018-01-03] VITALS (18 sets, daily range): BP systolic 98–1112; BP diastolic 51–71
[2018-01-03 06:30] LABS: MCH 32.1 pg (26.0-34.0); MCHC 30.8 g/dL (28.0-37.0); PLATELET COUNT 143 thou/uL (150-400); RDW 19.9 % (10.5-14.5); WBC 2.1 thou/uL (4.0-11.0)
[2018-01-03 06:34] LABS: MCV 104.2 fL (80.0-100.0)
[2018-01-03 06:35] LABS: HEMOGLOBIN 7.7 gm/dL (14.0-18.0)
[2018-01-03 06:51] LABS: ALBUMIN 1.7 g/dL (3.4-5.0); CALCIUM 7.1 mg/dL (8.5-10.1); CREATININE 3.7 mg/dL (0.7-1.3); PHOSPHORUS 3.8 mg/dL (2.5-4.9); POTASSIUM 3.4 mmol/L (3.5-5.1)
[2018-01-03 07:40] LABS: ABSOLUTE NEUTROPHILS 1.9 thou/uL (1.4-8.2); BASOPHILS 0.3 % (0.0-2.0); EOSINOPHILS 0.1 % (0.0-3.0); HEMATOCRIT 27.5 % (42.0-52.0); HEMOGLOBIN 9.2 gm/dL (14.0-18.0); MCH 32.8 pg (26.0-34.0); MCHC 33.5 g/dL (28.0-37.0); MONOCYTES 8.9 % (1.0-8.0); PLATELET COUNT 176 thou/uL (150-400); POLYS 64.7 % (36.0-66.0); RBC 2.81 mil/uL (4.50-6.00); RDW 18.7 % (10.5-14.5)
[2018-01-03 07:41] LABS: MCV 97.9 fL (80.0-100.0)
[2018-01-03 07:46] LABS: ABSOLUTE NEUTROPHILS 1.5 thou/uL (1.4-8.2)
[2018-01-03 07:48] LABS: ANISOCYTOSIS 2+; MACROCYTES 1+
[2018-01-03 07:56] LABS: ALBUMIN 2.1 g/dL (3.4-5.0); CALCIUM 8.1 mg/dL (8.5-10.1); CREATININE 3.9 mg/dL (0.7-1.3); PHOSPHORUS 4.1 mg/dL (2.5-4.9); POTASSIUM 3.8 mmol/L (3.5-5.1)
[2018-01-03 08:31] LABS: PLATELET ESTIMATE NORMAL
[2018-01-03 08:32] LABS: ANISOCYTOSIS 1+
[2018-01-03 11:05] LABS: APTT 36.7 Seconds (24.5-32.8); INR 1.2; PROTIME 11.8 Seconds (9.3-11.4)
[2018-01-03 16:52] LABS: CLARITY SLIGHT HAZY; COLOR YELLOW; SOURCE THORACENTESIS; TOTAL VOLUME 65 mL
[2018-01-03 17:18] LABS: BF NUCLEATED CELLS 206; BF RBC 367
[2018-01-03 18:05] LABS: BF MACROPHAGE 69; BF NEUTROPHILS 11
[2018-01-04 00:05] VITALS: BP 104/53
[2018-01-04 04:45] VITALS: BP 0117/55
[2018-01-04 04:51] LABS: HEMATOCRIT 26.7 % (42.0-52.0); HEMOGLOBIN 8.9 gm/dL (14.0-18.0); MCH 32.6 pg (26.0-34.0); MCHC 33.5 g/dL (28.0-37.0); MCV 97.2 fL (80.0-100.0); PLATELET COUNT 189 thou/uL (150-400); RBC 2.75 mil/uL (4.50-6.00); RDW 18.3 % (10.5-14.5); WBC 3.7 thou/uL (4.0-11.0)
[2018-01-04 05:02] LABS: ALBUMIN 2.1 g/dL (3.4-5.0); CALCIUM 8.3 mg/dL (8.5-10.1); CREATININE 4.1 mg/dL (0.7-1.3); PHOSPHORUS 4.4 mg/dL (2.5-4.9); POTASSIUM 3.6 mmol/L (3.5-5.1)
[2018-01-04 05:27] LABS: ABSOLUTE NEUTROPHILS 2.7 thou/uL (1.4-8.2)
[2018-01-04 05:29] LABS: BURR CELLS OCCASIONAL
[2018-01-04 07:41] VITALS: BP 102/56
[2018-01-04 10:07] LABS: ADENOVIRUS Negative (Negative); INFLUENZA A Negative (Negative); INFLUENZA B Negative (Negative); METAPNEUMOVIRUS Negative (Negative); PARAINFLUENZA 1 Negative (Negative); PARAINFLUENZA 2 Negative (Negative); PARAINFLUENZA 3 Negative (Negative); RHINOVIRUS Negative (Negative); RSV A Negative (Negative); RSV B Negative (Negative)
[2018-01-04 10:07] LABS: BODY FLUID ALBUMIN 1.4 g/dL (()); BODY FLUID AMYLASE 16 U/L (()); BODY FLUID GLUCOSE 271 mg/dL (()); BODY FLUID LDH 74 IU/L (()); BODY FLUID PROTEIN 2.4 g/dL (())
[2018-01-04 13:28] VITALS: BP 134/76
[2018-01-04 16:15] VITALS: BP 102/52
[2018-01-04 20:38] VITALS: BP 117/47
[2018-01-05 03:54] VITALS: BP 117/50
[2018-01-05 05:14] LABS: ALBUMIN 2.1 g/dL (3.4-5.0); CALCIUM 7.7 mg/dL (8.5-10.1); PHOSPHORUS 2.7 mg/dL (2.5-4.9); POTASSIUM 3.3 mmol/L (3.5-5.1)
[2018-01-05 05:17] LABS: CREATININE 2.9 mg/dL (0.7-1.3)
[2018-01-05 07:29] VITALS: BP 104/50
[2018-01-05 09:28] LABS: SOURCE THORACENTESIS
[2018-01-05 12:03] VITALS: BP 104/50
[2018-01-05 12:08] LABS: HEP B SURFACE Ab(ANTI-HBS Non Reactive (()); HEPATITIS B SURFACE AG Negative (Negative)
[2018-01-05 16:21] VITALS: BP 115/56
[2018-01-05 20:00] VITALS: BP 111/65
[2018-01-06 04:29] VITALS: BP 120/75
[2018-01-06 04:31] LABS: HEMATOCRIT 26.5 % (42.0-52.0); HEMOGLOBIN 8.6 gm/dL (14.0-18.0); MCHC 32.6 g/dL (28.0-37.0); MCV 98.1 fL (80.0-100.0); RBC 2.7 mil/uL (4.50-6.00); RDW 18.1 % (10.5-14.5); WBC 2.2 thou/uL (4.0-11.0)
[2018-01-06 04:50] LABS: ALBUMIN 2.1 g/dL (3.4-5.0); CALCIUM 8.1 mg/dL (8.5-10.1); MAGNESIUM 1.4 mg/dL (1.8-2.4); PHOSPHORUS 3.1 mg/dL (2.5-4.9); POTASSIUM 3.9 mmol/L (3.5-5.1)
[2018-01-06 08:32] VITALS: BP 135/72
[2018-01-06 11:34] VITALS: BP 117/67
[2018-01-06 15:29] VITALS: BP 130/71
[2018-01-06 19:11] VITALS: BP 109/59
[2018-01-07 05:08] VITALS: BP 143/76
[2018-01-07 06:24] LABS: HEMATOCRIT 27.3 % (42.0-52.0); HEMOGLOBIN 9.2 gm/dL (14.0-18.0); MCH 32.7 pg (26.0-34.0); MCHC 33.7 g/dL (28.0-37.0); MCV 97.2 fL (80.0-100.0); PLATELET COUNT 157 thou/uL (150-400); RBC 2.81 mil/uL (4.50-6.00); RDW 17.8 % (10.5-14.5); WBC 2.4 thou/uL (4.0-11.0)
[2018-01-07 06:40] LABS: ALBUMIN 2.2 g/dL (3.4-5.0); CALCIUM 8.1 mg/dL (8.5-10.1); CREATININE 3.4 mg/dL (0.7-1.3); MAGNESIUM 1.5 mg/dL (1.8-2.4); PHOSPHORUS 3.4 mg/dL (2.5-4.9); POTASSIUM 3.7 mmol/L (3.5-5.1)
[2018-01-07 06:41] LABS: % SATURATION 35 % (20-39); IRON 61 ug/dL (65-175); TIBC 172 ug/dL (250-450)
[2018-01-07 08:10] LABS: ABSOLUTE NEUTROPHILS 0.4 thou/uL (1.4-8.2)
[2018-01-07 08:50] VITALS: BP 130/77
[2018-01-07 12:00] VITALS: BP 181/64
[2018-01-07 16:01] VITALS: BP 118/63
[2018-01-07 19:30] VITALS: BP 112/67
[2018-01-08 04:37] VITALS: BP 120/68
[2018-01-08 06:27] LABS: ALBUMIN 2.2 g/dL (3.4-5.0); CALCIUM 8.3 mg/dL (8.5-10.1); CREATININE 3.5 mg/dL (0.7-1.3); MAGNESIUM 1.7 mg/dL (1.8-2.4); POTASSIUM 3.9 mmol/L (3.5-5.1)
[2018-01-08 07:40] VITALS: BP 127/72
[2018-01-08 11:13] VITALS: BP 122/65
[2018-01-08 15:56] VITALS: BP 98/58
[2018-01-08 20:53] VITALS: BP 96/52
[2018-01-09 04:36] VITALS: BP 117/68
[2018-01-09 06:59] LABS: ALBUMIN 2.3 g/dL (3.4-5.0); CALCIUM 8.5 mg/dL (8.5-10.1); MAGNESIUM 1.8 mg/dL (1.8-2.4); PHOSPHORUS 2.8 mg/dL (2.5-4.9); POTASSIUM 3.8 mmol/L (3.5-5.1)
[2018-01-09 07:04] LABS: CREATININE 2.5 mg/dL (0.7-1.3)
[2018-01-09 08:48] VITALS: BP 137/82
[2018-01-09 11:40] VITALS: BP 121/61
[2018-01-09 15:59] VITALS: BP 107/58
[2018-01-09 20:12] VITALS: BP 106/64
[2018-01-10 04:06] VITALS: BP 119/69
[2018-01-10 07:02] LABS: HEMATOCRIT 29.1 % (42.0-52.0); HEMOGLOBIN 9.8 gm/dL (14.0-18.0); MCH 32.6 pg (26.0-34.0); MCHC 33.6 g/dL (28.0-37.0); MCV 96.8 fL (80.0-100.0); RBC 3.01 mil/uL (4.50-6.00); RDW 17.4 % (10.5-14.5); WBC 3.7 thou/uL (4.0-11.0)
[2018-01-10 07:21] LABS: ALBUMIN 2.3 g/dL (3.4-5.0); CALCIUM 8.5 mg/dL (8.5-10.1); CREATININE 2.8 mg/dL (0.7-1.3); POTASSIUM 3.9 mmol/L (3.5-5.1)
[2018-01-10 08:04] VITALS: BP 130/73
[2018-01-10 16:44] VITALS: BP 113/66
[2018-01-10 21:02] VITALS: BP 110/60
[2018-01-11 04:04] VITALS: BP 122/60
[2018-01-11 05:25] LABS: ALBUMIN 2.2 g/dL (3.4-5.0); CALCIUM 8.3 mg/dL (8.5-10.1); CREATININE 2.9 mg/dL (0.7-1.3); POTASSIUM 3.9 mmol/L (3.5-5.1)
[2018-01-11 08:02] VITALS: BP 118/75
[2018-01-11 11:10] VITALS: BP 127/67
[2018-01-11] MEDS ORDERED: ENOXAPARIN30 MG/0.1 SUBQ (12:40)
[2018-01-11] MEDS ORDERED: FIRVANQ50 MG/1 ML PO (12:40)
[2018-01-11] MEDS ORDERED: PROCRIT20000 UNIT SUBQ (12:41)
[2018-01-11] MEDS ORDERED: METOPROLOL SUCC50 MG PO (12:41)
[2018-01-11] MEDS ORDERED: NOVOLOG100 UNIT/1 SUBQ (12:42)
[2018-01-11] MEDS ORDERED: ALLOPURINOL 10100 M2 PO (12:43)
[2018-01-11 15:53] VITALS: BP 100/56
== END 2018-01-11 17:34 | DRG 853 ==
LOC: ER 02:10 → ICU 03:36 → 2N 01-03 18:54
PROVIDERS: Emergency Medicine; Family Medicine; Hospitalist; Internal Medicine Nephrology; Specialist
DX: A41.9 Sepsis, unspecified organism (principal); L89.153 Pressure ulcer of sacral region, stage 3; N18.6 End stage renal disease; J69.0 Pneumonitis due to inhalation of food and vomit; R65.21 Severe sepsis with septic shock; E43 Unspecified severe protein-calorie malnutrition; N17.9 Acute kidney failure, unspecified; A04.72 Enterocolitis due to Clostridium difficile, not specified as recurrent; N39.0 Urinary tract infection, site not specified; L97.518 Non-pressure chronic ulcer of other part of right foot with other specified severity; T82.897A Other specified complication of cardiac prosthetic devices, implants and grafts, initial encounter; I13.2 Hypertensive heart and chronic kidney disease with heart failure and with stage 5 chronic kidney disease, or end stage renal disease; G93.40 Encephalopathy, unspecified; I47.2 Ventricular tachycardia; E87.1 Hypo-osmolality and hyponatremia; J90 Pleural effusion, not elsewhere classified; J98.11 Atelectasis; I25.5 Ischemic cardiomyopathy; E11.51 Type 2 diabetes mellitus with diabetic peripheral angiopathy without gangrene; E11.649 Type 2 diabetes mellitus with hypoglycemia without coma; I25.10 Atherosclerotic heart disease of native coronary artery without angina pectoris; E11.42 Type 2 diabetes mellitus with diabetic polyneuropathy; E78.5 Hyperlipidemia, unspecified; E11.621 Type 2 diabetes mellitus with foot ulcer; E11.22 Type 2 diabetes mellitus with diabetic chronic kidney disease; I48.2 Chronic atrial fibrillation; Y95 Nosocomial condition; E87.6 Hypokalemia; I08.1 Rheumatic disorders of both mitral and tricuspid valves; M62.84 Sarcopenia; D64.9 Anemia, unspecified; Y83.8 Other surgical procedures as the cause of abnormal reaction of the patient, or of later complication, without mention of misadventure at the time of the procedure; Y92.89 Other specified places as the place of occurrence of the external cause; I25.2 Old myocardial infarction; Z89.612 Acquired absence of left leg above knee; Z95.810 Presence of automatic (implantable) cardiac defibrillator; Z95.1 Presence of aortocoronary bypass graft; Z95.5 Presence of coronary angioplasty implant and graft; Z68.30 Body mass index [BMI] 30.0-30.9, adult; Z87.891 Personal history of nicotine dependence; Z89.411 Acquired absence of right great toe; Z86.74 Personal history of sudden cardiac arrest; Z95.820 Peripheral vascular angioplasty status with implants and grafts; Z79.02 Long term (current) use of antithrombotics/antiplatelets; Z79.4 Long term (current) use of insulin; Z79.82 Long term (current) use of aspirin; Z79.84 Long term (current) use of oral hypoglycemic drugs; Z79.899 Other long term (current) drug therapy; Z88.8 Allergy status to other drugs, medicaments and biological substances; Z83.3 Family history of diabetes mellitus
CPT/HCPCS: 10078; 10081; 32100

== ENCOUNTER 2018-01-11 14:37 | Inpatient (IN) | payer OTHER ==
[~2018-01-11] VITALS: Ht 182.9 cm; Wt 101.6 kg
--- NOTE | ~2018-01-11 | PLAN ---
[facility] [place] [address] REHAB UNIT PLAN OF CARE Name: IRMA BLANCAS Room #: 511-P DIS IN M.R.#: [id number] Admission: 01/11/18 Attend Phys: Bleu Dalton MD Discharge: 01/28/18 Date of : 34 Report #: [id number] THIS REPORT FOR: //name// CC: Blue Lemus DATE OF SERVICE: 01/14/2018 SUBJECTIVE: The patient is seen back today in followup. He was in no distress. Temperature 36.6, pulse 91, respirations 18, blood pressure 116/53. No calf swelling. Dressing to right foot. 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 Bed mobility is mod assist supine to sit, min assist, sit to supine. In occupational therapy, he is dependent for lower body dressing. Upper body dressing; however, is only supervision. ASSESSMENT: 1. Medical complex with generalized debilitation. 2. Recent left above knee amputation approximately 5 weeks ago. 3. Sepsis, resolved. 4. Clostridium difficile colitis. 5. Pneumonia with pleural effusion, status post thoracentesis. 6. Acute renal insufficiency on chronic kidney disease. Currently, not needing hemodialysis. 7. Peripheral vascular disease with right foot wound. 8. Bilateral upper extremity superficial clot. 9. Peripheral neuropathy premorbid. 10. Right foot drop. 11. Hypoglycemia with type 2 diabetes mellitus. 12. Recent gastrointestinal bleed. 13. Recent [place] x 2. PLAN: The overall plan of care is based on the preadmission screen, post-admission physician evaluation and information garnered from therapy assessments. 1. Estimated length of stay is probably 10 days to 2 weeks or likely longer as needed. We will need to see how he progresses in therapies. 2. Medical prognosis is reasonably good. 3. Anticipated interventions includes the interdisciplinary acute inpatient rehabilitation program. 4. Anticipated functional outcomes would be for the patient to become ideally modified independent with basic bed mobility and wheelchair transfers and basic ADLs, although, he is going to need assistance with lower body dressing. 5. Discharge destination would be for him to return back to the home setting, where he lives with his and has an involved daughter. 6. Expected therapy by discipline includes PT and OT 1-1-1/2 hours [place] [address] REHAB UNIT PLAN OF CARE Name: WILLOWPOOLMarilynIRMA TOLBERT Room #: 511-P DIS IN .R.#: [id number] Admission: 01/11/18 Attend Phys: Blue Dalton MD Discharge: 01/28/18 Date of : 34 Report #: [id number] speech therapy one half to one hour per day each five days a week throughout the duration of the acute inpatient rehabilitation stay. We may be able to wean some of the speech therapy depending upon how he does. <ELECTRONICALLY SIGNED> By: Blue Dalton MD 02/01/18 1121 0832 Blue Dalton MD /nt
--- NOTE | ~2018-01-11 | H ---
[facility] [place] [address] HISTORY AND PHYSICAL Name: IRMA BLANCAS Room #: 511-P ADM IN M.R.#: [id number] Admission: 01/11/18 Attend Phys: Blue Dalton MD Discharge: Date of : 34 Report #: [id number] THIS REPORT FOR: //name// CC: Blue Lemus DATE OF SERVICE: 01/11/2018 HISTORY AND PHYSICAL/POSTADMISSION PHYSICIAN EVALUATION: HISTORY OF PRESENT ILLNESS: The patient is an 82-year-old white male who originally was admitted to [facility] 12/30/2017 with hypoglycemia and hypotension. He had been at [facility] for 8 weeks for an SD x 2, developed a GI bleed, then a left leg infection and underwent an above knee amputation. He underwent rehabilitation services was able to discharge home at a wheelchair level, but was only there for 2 days prior to presenting back to the hospital. He was admitted this time to [facility] with sepsis, C. diff colitis, pulmonary infiltrate. He was noted to have a pleural effusion. He underwent thoracentesis, 1200 mL. His pressure was supported initially. He was thought to have septic shock, likely from Clostridium diff colitis. He was noted to have end-stage renal disease. He has needed dialysis and was on dialysis at home before. Nephrology is following. He did have upper extremity edema with a superficial clot and was on Lovenox daily. He had a prior history of V-tach and V-fib arrest with Medtronic ICD in place. He has not been admitted for acute in-hospital inpatient rehabilitation. PAST MEDICAL HISTORY: Includes hypertension, hyperlipidemia, diabetes mellitus, end-stage renal disease, peripheral arterial disease, coronary artery disease, ventricular tachycardia with ventricular fibrillation, cardiac arrest x 2. PAST SURGICAL HISTORY: Coronary artery bypass grafting and left above knee amputation. MEDICATIONS: Please see the full medication listing. This includes vitamins, herbals, and supplements. ALLERGIES: AMLODIPINE, QUINAPRIL, TICLOPIDINE. SOCIAL HISTORY: He does live with his . There is an involved daughter that can come as needed. He was using a sliding board for transfers and a manual wheelchair. Home, was noted to be handicapped accessible. There are a ramps to enter. REVIEW OF SYSTEMS: No current complaints of chest pain, shortness of breath, abdominal discomfort. He does have premorbid weakness of that right lower extremity with decreased sensation consistent with peripheral neuropathy. Noted [facility] [address] [place] [address] HISTORY AND PHYSICAL Name: IRMA BLANCAS Room #: 511-P [facility].#: [id number] Admission: 01/11/18 Attend Phys: Blue Dalton MD Discharge: Date of : 34 Report #: [id number] to have a foot drop. PHYSICAL EXAMINATION: GENERAL: The patient is an overweight, pleasant 82-year-old white male in no obvious distress. VITAL SIGNS: Temperature 98.3, pulse 96, respirations 20, blood pressure 97/54. He is alert, pleasant and appears oriented. HEENT: Facies appeared symmetric. EOMs are full. CHEST: Sounded clear to auscultation. He has a central line in place right chest. CARDIOVASCULAR: Regular rate and rhythm. ABDOMEN: Obese, bowel sounds positive, nontender. /RECTAL: Deferred. EXTREMITIES: Functional range of motion of the upper extremities. He does have some scattered ecchymoses. Strength is grade 3+ to 4-/5. 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 Right lower extremity, there is a dressing distally. He does have a foot drop less than antigravity including eversion and dorsiflexion, decreased sensation from the knee distal, proximal right lower extremity strength is better at a grade 3+ to 4-. ASSESSMENT: An 82-year-old white male with the following problems list: 1. Right lower extremity weakness with foot drop. 2. Recent left above-knee amputation. 3. Diabetic peripheral neuropathy. 4. Medical complexity with generalized debilitation. 5. Recent sepsis. 6. Clostridium difficile colitis. 7. Pneumonia with pleural effusion, status post thoracentesis. 8. Acute renal insufficiency superimposed on chronic kidney disease, was on hemodialysis. 9. Peripheral vascular disease with right foot wound. 10. Upper extremity superficial clot. 11. Diabetes mellitus type 2. 12. Recent gastrointestinal bleed. 13. Recent [place] x 2. PLAN: From a postadmission physician evaluation perspective, there are no relevant changes since the preadmission screening. Please see the above review of prior and current medical and functional conditions and comorbidities. Please see the patient's previous and current functional status. As far as risk of complications, the patient has multiple medical comorbidities as noted above. The initial plan of care involves the interdisciplinary acute inpatient rehabilitation program with the goal of maximizing his functional independence, so he can hopefully return back to his prior living situation. Measurable functional goals would be to achieve independence at a wheelchair level with [facility] [address] [place] [address] HISTORY AND PHYSICAL Name: IRMA BLANCAS Room #: 511-P ADM IN M.R.#: [id number] Admission: 01/11/18 Attend Phys: Blue Dalton MD Discharge: Date of : 34 Report #: [id number] basic transfers, mobility and ADLs. Prognosis is reasonably good with estimated length of stay, probably at least 10 days to 2 weeks and potentially longer as warranted. Potential barriers would include the patient's multiple medical comorbidities and decreased functional status. He meets diagnostic criteria for an acute in-hospital inpatient rehabilitation stay. He meets the medical necessity criteria and we will have the wealth management consultant physicians continue to follow. He does have the tolerance for therapies and has appropriate discharge goals back to the home setting. <ELECTRONICALLY SIGNED> By: Blue Dalton MD 01/19/18 1319 0922 Blue Dalton MD /nt
--- NOTE | ~2018-01-11 | HC ---
[facility] [place] [address] CONSULTATION Name: IRMA BLANCAS Room #: 511-P ADM IN M.R.#: [id number] Admission: 01/11/18 Attend Phys: Blue Dalton MD Discharge: Date of : 34 Report #: [id number] THIS REPORT FOR: //name// CC: Blue Lemus DATE OF SERVICE: 01/15/2018 Neurobehavioral Status Examination ATTENDING PHYSICIAN: Blue Dalton MD LIVESTOCK BUYER: Cabrera Dave, PhD CLINICAL PRESENTATION: The patient is an 82-year-old male, admitted to the rehab unit at [facility] for a comprehensive inpatient rehabilitation program to improve functional mobility, activities of daily living and self-care and mental status secondary to deficits from a right lower extremity weakness with foot drop and a recent left joqbx-xll-hpoo amputation. His diagnoses include diabetic peripheral neuropathy, medical complexity with generalized debility, recent sepsis, C. diff, pneumonia with pleural effusion, status post thoracentesis, acute renal insufficiency superimposed on chronic kidney disease, was on hemodialysis, peripheral vascular disease with right foot wound, upper extremity superficial clot, diabetes mellitus type 2, recent gastrointestinal bleed and recent [place] times 2. A complete description of his medical condition and history can be found in his medical record. Neuropsychological consultation was requested to provide assistance in the assessment of cognitive and emotional status and to provide recommendations and services. Prior to this recent deterioration in his medical condition, he was living independently with his in their home. He reports having driven and been independent with instrumental activities of daily living. The patient has 2 children that are supportive. He is a high school graduate. His employment was at [employer] prior to fdc. TECHNIQUES UTILIZED: Clinical interview, review of medical records, staff consultation, and behavioral observation, Mini Mental Status Exam 2 standard version and verbal fluency assessment. EXAMINATION FINDINGS: The patient was alert and cooperative with the assessment. He accurately described events surrounding his admission. There is no evidence of aphasia. His thoughts are logical and goal oriented. There is no evidence of thought disorder. He describes his symptoms to include appetite, anxiety/depression, tiredness and fatigue, and variability in word finding. The patient acknowledges having been somewhat noncompliant with his previous medical [facility] [address] [place] [address] CONSULTATION Name: IRMA BLANCAS Room #: 511-P [facility] IN M.R.#: [id number] Admission: 01/11/18 Attend Phys: Blue Dalton MD Discharge: Date of : 34 Report #: [id number] care and now is experiencing a degree of remorse about aspects of past behavior. The patient scores positive for of cognitive deficits on the MMSE 2 brief version with a raw score of 12/16, which is a T score of 30 and percentile rank at 2. He was 3/3 for initial registration, 4/5 for orientation to date and the 4/[address] He was 0/3 for immediate recall of 3 items after brief time delay and distraction. Performance on the MMSE 2 brief version was 23/30, which is a T score of 36 and percentile rank of 8, which suggests uejb-wj-lucarelp impairment. Letter fluency is within normal limits with a T score of 49. Rmfa-mb-umliyjpm deficits are suggested in category fluency with a raw score of 4 and a T score of 31. The patient is presenting with an impairment in immediate recall, sustained attention/concentration and verbal fluency. His mood also appears depressed. DIAGNOSTIC IMPRESSION: Neurocognitive disorder (neurocognitive disorder - unspecified - without behavior disorder - extent to be determined, likely in the lqnw-vh-lglxmitw range. Unspecified depressive disorder. RECOMMENDATIONS: The patient will likely require assistance in the management of medication upon his discharge home. Continued treatment program for derpession. He is taking an antidepressant at this time. Psychotherapy will also be helpful. Verbal praise and compliments about participation in therapies will be of benefit. Assisting him in recognizing his acheivement of theraputic goals leading to independence will also assist in decreasing anxiety. Thank you very much for allowing me to provide the consultation on this patient. <ELECTRONICALLY SIGNED> By: Cabrera Dave, PhD 01/16/18 2211 1542 0342 Cabrera Dave, PhD /nt
[~2018-01-11 14:37] MED LIST changes: +ALLOPURINOL 10100 M2 PO; +AVAPRO75 MG PO; +ENOXAPARIN30 MG/0.1 SUBQ; +FIRVANQ50 MG/1 ML PO; +LEXAPRO 10 MG T10 M2 PO; +LIDOCAINE PAIN1 EACH TOP; +MELATONIN3 MG PO; +METOPROLOL SUCC50 MG PO; +MIRALAX17 GM PO; +NEPHRO-VITE RX1 TA1 PO; +NOVOLOG100 UNIT/1 SUBQ; +PRAVACHOL40 MG PO; +PRO-STAT LIQUID30 M1 PO; +PROCRIT20000 UNIT SUBQ; +PROTONIX40 M1 PO; +UNICOMPLEX M TA1 TA1 PO; +[UNRECOGNIZED DRUG - CODE]
[2018-01-11 17:30] VITALS: BP 106/58
[2018-01-11 19:58] VITALS: BP 97/54
[2018-01-12 05:34] LABS: HEMATOCRIT 29.4 % (42.0-52.0); HEMOGLOBIN 9.5 gm/dL (14.0-18.0); MCH 31.7 pg (26.0-34.0); MCHC 32.4 g/dL (28.0-37.0); MCV 97.8 fL (80.0-100.0); RDW 17.7 % (10.5-14.5); WBC 5.2 thou/uL (4.0-11.0)
[2018-01-12 05:44] LABS: CALCIUM 8.3 mg/dL (8.5-10.1); CREATININE 2.9 mg/dL (0.7-1.3); POTASSIUM 3.6 mmol/L (3.5-5.1)
[2018-01-12 08:10] VITALS: BP 106/54
[2018-01-12 19:15] VITALS: BP 96/54
[2018-01-13 09:16] VITALS: BP 133/65
[2018-01-13 16:36] LABS: GLYCOHEMOGLOBIN (HGB A1C) 4.9 % (4.8-5.6)
[2018-01-13 19:30] VITALS: BP 116/53
[2018-01-14 06:20] LABS: HEMATOCRIT 29.4 % (42.0-52.0); HEMOGLOBIN 9.9 gm/dL (14.0-18.0); MCH 32.6 pg (26.0-34.0); MCHC 33.7 g/dL (28.0-37.0); MCV 96.6 fL (80.0-100.0); RBC 3.04 mil/uL (4.50-6.00); RDW 17.5 % (10.5-14.5); WBC 4.2 thou/uL (4.0-11.0)
[2018-01-14 06:35] LABS: ALBUMIN 2.2 g/dL (3.4-5.0); CALCIUM 8.2 mg/dL (8.5-10.1); PHOSPHORUS 3.4 mg/dL (2.5-4.9); POTASSIUM 3.9 mmol/L (3.5-5.1)
[2018-01-14 07:45] VITALS: BP 122/65
[2018-01-14 19:10] VITALS: BP 100/50
[2018-01-15 19:57] VITALS: BP 102/46
[2018-01-16 06:39] LABS: ALBUMIN 2.3 g/dL (3.4-5.0); CALCIUM 8.6 mg/dL (8.5-10.1); CREATININE 3.1 mg/dL (0.7-1.3); PHOSPHORUS 3.6 mg/dL (2.5-4.9); POTASSIUM 3.6 mmol/L (3.5-5.1)
[2018-01-16 08:00] VITALS: BP 122/65
[2018-01-16 19:25] VITALS: BP 122/84
[2018-01-17 04:52] LABS: ALBUMIN 2.4 g/dL (3.4-5.0); CALCIUM 8.5 mg/dL (8.5-10.1); PHOSPHORUS 3.8 mg/dL (2.5-4.9); POTASSIUM 3.7 mmol/L (3.5-5.1)
[2018-01-17 08:00] VITALS: BP 121/65
[2018-01-17 19:48] VITALS: BP 101/51
[2018-01-18 08:00] VITALS: BP 101/51
[2018-01-18 19:40] VITALS: BP 113/60
[2018-01-19 07:17] LABS: ALBUMIN 2.6 g/dL (3.4-5.0); CREATININE 3.2 mg/dL (0.7-1.3); PHOSPHORUS 3.8 mg/dL (2.5-4.9); POTASSIUM 3.7 mmol/L (3.5-5.1)
[2018-01-19 08:00] VITALS: BP 122/58
[2018-01-19 21:00] VITALS: BP 104/63
[2018-01-20 11:42] VITALS: BP 120/59
[2018-01-20 20:45] VITALS: BP 124/62
[2018-01-21 06:24] LABS: ALBUMIN 2.5 g/dL (3.4-5.0); CALCIUM 8.2 mg/dL (8.5-10.1); CREATININE 2.9 mg/dL (0.7-1.3); PHOSPHORUS 4.1 mg/dL (2.5-4.9); POTASSIUM 3.4 mmol/L (3.5-5.1)
[2018-01-21 08:00] VITALS: BP 123/63
[2018-01-21 20:14] VITALS: BP 102/49
[2018-01-21 20:45] VITALS: BP 110/60
[2018-01-22 08:05] VITALS: BP 124/73
[2018-01-22 20:02] VITALS: BP 114/58
[2018-01-23 07:28] VITALS: BP 112/65
[2018-01-23 19:29] VITALS: BP 99/48
[2018-01-24 06:54] LABS: ALBUMIN 2.5 g/dL (3.4-5.0); CALCIUM 8.2 mg/dL (8.5-10.1); PHOSPHORUS 3.9 mg/dL (2.5-4.9); POTASSIUM 3.4 mmol/L (3.5-5.1)
[2018-01-24 07:30] VITALS: BP 115/69
[2018-01-24 10:31] LABS: HEMATOCRIT 31.1 % (42.0-52.0); HEMOGLOBIN 10.3 gm/dL (14.0-18.0); MCH 31.7 pg (26.0-34.0); MCHC 33.3 g/dL (28.0-37.0); MCV 95.3 fL (80.0-100.0); PLATELET COUNT 222 thou/uL (150-400); RBC 3.26 mil/uL (4.50-6.00); WBC 3.5 thou/uL (4.0-11.0)
[2018-01-24 11:04] LABS: ANISOCYTOSIS 1+
[2018-01-24 11:05] LABS: ABSOLUTE NEUTROPHILS 1.4 thou/uL (1.4-8.2)
[2018-01-24 19:30] VITALS: BP 101/57
[2018-01-25 08:00] VITALS: BP 114/63
[2018-01-25 19:17] VITALS: BP 106/58
[2018-01-26 19:47] VITALS: BP 97/43
[2018-01-27 08:42] VITALS: BP 117/68
[2018-01-27 20:15] VITALS: BP 115/58
[2018-01-28 07:26] LABS: ALBUMIN 2.6 g/dL (3.4-5.0); CALCIUM 8.6 mg/dL (8.5-10.1); CREATININE 2.9 mg/dL (0.7-1.3); PHOSPHORUS 5.1 mg/dL (2.5-4.9); POTASSIUM 4.4 mmol/L (3.5-5.1)
[2018-01-28 07:44] VITALS: BP 115/72
[2018-01-28] MEDS ORDERED: TYLENOL325 MG PO (08:38)
[2018-01-28] MEDS ORDERED: PROTONIX40 M1 PO (08:38)
[2018-01-28] MEDS ORDERED: FIRVANQ50 MG/1 ML PO (08:38)
[2018-01-28] MEDS ORDERED: DEMADEX20 MG PO (08:38)
[2018-01-28 09:45] VITALS: BP 115/72
== END 2018-01-28 13:33 | disposition home health service (06) | DRG 947 ==
PROVIDERS: Hospitalist; Internal Medicine Nephrology; Nurse Practitioner; Nurse Practitioner Family; Physical Medicine & Rehabilitation
PROC: 0JPT3XZ Removal of Tunneled Vascular Access Device from Trunk Subcutaneous Tissue and Fascia, Percutaneous Approach (ICD-10-PCS; principal; 2018-01-20)
DX: R53.81 Other malaise (principal); A41.9 Sepsis, unspecified organism; J18.9 Pneumonia, unspecified organism; L89.153 Pressure ulcer of sacral region, stage 3; N18.6 End stage renal disease; A04.72 Enterocolitis due to Clostridium difficile, not specified as recurrent; N17.9 Acute kidney failure, unspecified; I13.2 Hypertensive heart and chronic kidney disease with heart failure and with stage 5 chronic kidney disease, or end stage renal disease; I82.613 Acute embolism and thrombosis of superficial veins of upper extremity, bilateral; E46 Unspecified protein-calorie malnutrition; R53.1 Weakness; E11.42 Type 2 diabetes mellitus with diabetic polyneuropathy; E11.22 Type 2 diabetes mellitus with diabetic chronic kidney disease; E11.51 Type 2 diabetes mellitus with diabetic peripheral angiopathy without gangrene; D63.8 Anemia in other chronic diseases classified elsewhere; E78.5 Hyperlipidemia, unspecified; I25.10 Atherosclerotic heart disease of native coronary artery without angina pectoris; I48.91 Unspecified atrial fibrillation; I95.9 Hypotension, unspecified; E11.649 Type 2 diabetes mellitus with hypoglycemia without coma; E11.621 Type 2 diabetes mellitus with foot ulcer; L97.519 Non-pressure chronic ulcer of other part of right foot with unspecified severity; Z95.1 Presence of aortocoronary bypass graft; Z89.612 Acquired absence of left leg above knee; I25.2 Old myocardial infarction; Z86.74 Personal history of sudden cardiac arrest; Z99.2 Dependence on renal dialysis; F32.9 Major depressive disorder, single episode, unspecified; Z88.1 Allergy status to other antibiotic agents; Z88.8 Allergy status to other drugs, medicaments and biological substances; Z79.899 Other long term (current) drug therapy; Z79.4 Long term (current) use of insulin; Z79.82 Long term (current) use of aspirin; Z68.30 Body mass index [BMI] 30.0-30.9, adult
CPT/HCPCS: 10112

== ENCOUNTER 2019-02-09 16:49 | Inpatient (IN) | payer OTHER ==
[~2019-02-09] VITALS: Ht 182.9 cm; Wt 102.7 kg
[~2019-02-09 16:49] MED LIST changes: +DEMADEX20 MG PO; +TYLENOL325 MG PO
[2019-02-09 16:53] VITALS: BP 78/53
[2019-02-09] MEDS ORDERED: LEVEMIR FL100 UNIT/2 SUBQ (18:48)
[2019-02-09] MEDS ORDERED: KLOR-CON 10 ER10 MEQ PO (18:50)
[2019-02-09] MEDS ORDERED: LOPERAMIDE 2 MG2 M1 PO (18:51)
[2019-02-09] MEDS ORDERED: STARLIX60 MG PO (18:51)
[2019-02-09 19:30] LABS: HEMATOCRIT 30.9 % (42.0-52.0); HEMOGLOBIN 9.9 gm/dL (14.0-18.0); MCH 32.7 pg (26.0-34.0); MCHC 31.9 g/dL (28.0-37.0); MCV 102.4 fL (80.0-100.0); PLATELET COUNT 141 thou/uL (150-400); RBC 3.01 mil/uL (4.50-6.00); RDW 15.3 % (10.5-14.5); WBC 21.5 thou/uL (4.0-11.0)
[2019-02-09 19:34] LABS: CALCIUM 9.3 mg/dL (8.5-10.1); CREATININE 3.6 mg/dL (0.7-1.3); POTASSIUM 4.7 mmol/L (3.5-5.1)
[2019-02-09 20:09] LABS: ABSOLUTE NEUTROPHILS 20.4 thou/uL (1.4-8.2); ANISOCYTOSIS 2+; MACROCYTES 1+
[2019-02-09 20:51] LABS: ALBUMIN 2.9 g/dL (3.4-5.0); DIRECT BILIRUBIN 0.9 mg/dL (<0.1-0.3); TOTAL BILIRUBIN 1.5 mg/dL (<0.1-1.0); TOTAL PROTEIN 6.9 g/dL (6.4-8.2)
[2019-02-10] VITALS (62 sets, daily range): BP systolic 35–120; BP diastolic 12–63
--- NOTE | 2019-02-10 02:31 | NUR ---
HODA FROM LAB CALLED, REPEAT LACTIC IS 4.3
[2019-02-10 05:35] LABS: HEMATOCRIT 32.7 % (42.0-52.0); HEMOGLOBIN 10.6 gm/dL (14.0-18.0); MCHC 32.5 g/dL (28.0-37.0); MCV 101.7 fL (80.0-100.0); RBC 3.22 mil/uL (4.50-6.00); RDW 15.3 % (10.5-14.5); WBC 34.3 thou/uL (4.0-11.0)
[2019-02-10 05:41] LABS: CALCIUM 8.9 mg/dL (8.5-10.1); CREATININE 3.4 mg/dL (0.7-1.3); POTASSIUM 5.5 mmol/L (3.5-5.1)
--- NOTE | 2019-02-10 08:28 | NUR ---
PT ARRIVED TO UNIT AT 0255. HYPOTENSIVE WITH SYSTOLIC BP IN THE 80s. PT STARTED ON LEVOPHED GTT WITH IMPROVEMENT IN BP. PT C/O PAIN ON HIS RIGHT HAND. LEFT LOWER EXTREMETY EDEMA ALSO NOTED, EXTREMETY PINK IN APPEARENCE SIMILAR TO CELLULITIS. X2 WOUNDS NOTED ON FOOT. PT VERBALIZES THAT HE WAS TAKING OVER THE COUNTER PAIN MEDS AT HOME "[employer] [facility]". PT UNSURE OF THE NAME OF THE MEDICATION. REPORT GIVEN TO ONCOMING RN.
--- NOTE | 2019-02-10 09:20 | EKG ---
[place] [address] [address] [place] [address] ELECTROCARDIOGRAM REPORT Name: IRMA BLANCAS Room #: 236-P ADM IN M.R.#: [id number] Admission: 02/09/19 Attend Phys: Lashae Hatfield Discharge: Date of : 34 Report #: [id number] THIS REPORT FOR: //name// [facility] ED Test Date: 2019-02-09 Test Time: 18:30:20 Pat Name: IRMA BLANCAS Department: Room: 236 Gender: M Leather Leveler: GARRET : 1935 Requested By: Sarahy Jesus Order Number: [id number] MD: Nico Haywood Measurements Intervals [place] Rate: 57 P: [place]: QRS: -104 QRSD: 150 T: 43 QT: 492 QTc: 479 Interpretive Statements Atrial fibrillation Right bundle branch block Compared to ECG 01/03/2018 08:32:36 No significant changes Electronically Signed On 02-10-2019 9:19:50 HUMAN ANATOMY TEACHER by Nico Haywood [email or web address] <ELECTRONICALLY SIGNED> By: Nico Haywood MD, [facility] 02/10/19918 29 29 Nico Haywood MD, FACC /EPI
--- NOTE | 2019-02-10 09:21 | EKG ---
[place] [address] [facility] [place] [address] ELECTROCARDIOGRAM REPORT Name: IRMA BLANCAS Room #: 236-P ADM IN M.R.#: [id number] Admission: 02/09/19 Attend Phys: Lashae Hatfield Discharge: Date of : 34 Report #: [id number] THIS REPORT FOR: //name// [facility] ED Test Date: 2019-02-09 Test Time: 21:52:38 Pat Name: IRMA BLANCAS Department: Room: 236 P Gender: M Social Media Senior Associate: COURTNEY : 1935 Requested By: Sarahy Jesus Order Number: [id number] MD: Nico Haywood Measurements Intervals [place] Rate: 65 P: [place]: QRS: -114 QRSD: 150 T: 34 QT: 480 QTc: 500 Interpretive Statements Atrial fibrillation Right bundle branch block Consider inferior infarct Compared to ECG 01/03/2018 08:32:36 Inferior Q waves are more prominent Electronically Signed On 02-10-2019 9:21:30 GRISTMILLER by Nico Haywood [email or web address] <ELECTRONICALLY SIGNED> By: Nico Haywood MD, [facility] 02/10/19 0921 51 51 Nico Haywood MD, FAC /EPI
--- NOTE | 2019-02-10 15:58 | NUR ---
INITIAL ASSESSMENT: SW reviewed chart and spoke with nursing and attending physician. Pt was admitted from home due to hypotension/CHF/ESRD/right wrist pain. Pt in ICU. SW met with pt at bedside. Introduced role of SW. Pt is alert/orientated x 4. Pt reports he lives at home with his , who has dementia. 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 Pt has a ramp into the home. Pt has a w/c, sliding board and hospital bed with at trapeze at home. Pt has used [facility] in the past for HH. Pt states they have weekly housekeeping visits. Pt has been to [facility] in 2017 for acute rehab. Pt's PCP is Dr. Alan Lemus. No weekend discharge planned. Therapy ordered to evaluate pt for discharge needs. Pt's goal is to return home. SW is following to assist as needed with discharge planning.
--- NOTE | 2019-02-10 18:26 | NUR ---
ASSUMED CARE @ 0700 02/10/19, PT ASSESSMENTS AND VSS COMPLETE PER ICU PROTOCOL. PT ENCOUNTERED ON LEVOPHED GTT, RN WORKED TOWARDS TITRATING DOWN BASED ON PARAMETERS SET. DR SOFIE ELKINS @ 0915, HE CONCLUDES THAT PT DOES NOT NEED LEVOPHED AND SO RN SHOULD TURN COMPLETELY, LEVOPHED ORDER DISCONTINUED, PT BP DROPS TO 70'S/40'S MAP 49, DR CARRIZALES INFORMED, A 500ML BOLUS IS ORDERED, BP IMPROVES TO HIGH 80'S OF 50'S. BOTH BLOOD CULTURES CAME BACK POSITIVE FOR GRAM +COCCI , DR CARRIZALES AWARE, RN TOLD PT ON APPROPRIATE ABX FOR IT, DR ZAVALA ROUNDS LATER IN THE DAY AND ORDERS MORE CULTURES. DR TAYLOR (ORTHOPEDIC DOCTOR) HERE TO SEE PT DURING THE SHIFT, NO NEW ORDERS RECIEVED. PLAN OF CARE- WILL CONT TO MONITOR.
[2019-02-11] VITALS (55 sets, daily range): BP systolic 77–133; BP diastolic 39–82
[2019-02-11 03:45] LABS: HEMATOCRIT 29.5 % (42.0-52.0); HEMOGLOBIN 9.4 gm/dL (14.0-18.0); MCH 32.6 pg (26.0-34.0); MCV 101.8 fL (80.0-100.0); PLATELET COUNT 128 thou/uL (150-400); RBC 2.89 mil/uL (4.50-6.00); RDW 15.6 % (10.5-14.5)
[2019-02-11 03:48] LABS: WBC 17.1 thou/uL (4.0-11.0)
[2019-02-11 03:57] LABS: ALBUMIN 2.2 g/dL (3.4-5.0); CALCIUM 8.4 mg/dL (8.5-10.1); CREATININE 3.6 mg/dL (0.7-1.3); POTASSIUM 5.1 mmol/L (3.5-5.1); TOTAL BILIRUBIN 0.6 mg/dL (<0.1-1.0); TOTAL PROTEIN 6.3 g/dL (6.4-8.2)
[2019-02-11 05:18] LABS: ABSOLUTE NEUTROPHILS 16.2 thou/uL (1.4-8.2); LARGE PLATELETS OCCASIONAL
[2019-02-11 05:19] LABS: BURR CELLS 3+
--- NOTE | 2019-02-11 11:25 | HC ---
[facility] [place] [address] CONSULTATION Name: IRMA BLANCAS Room #: 236-P ADM IN M.R.#: [id number] Admission: 02/09/19 Attend Phys: Lashae Hatfield Discharge: Date of : 34 Report #: [id number] THIS REPORT FOR: //name// CC: Alan Hatfield DATE OF SERVICE: 02/10/2019 CHIEF COMPLAINT: Painful right wrist and hand, probable gout. 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 He also has a history of gout, which has been managed medically in the past. He states he developed some right wrist and hand discomfort about 3 weeks ago and symptoms gradually improved. He had another flare of symptoms yesterday and came to the Emergency Room. He was found to be moderately hypotensive and had some pulmonary problems with his chronic COPD. He was therefore admitted and monitored in the ICU. At the time of my evaluation, he is alert and oriented and sitting up in a chair and states he feels well. He notes that his right hand and wrist discomfort has improved significantly. Rating his pain now at about 3-4/10. He states he did not have any accident or injury. He does not recall any significant previous problems with the wrist and hand. Objectively, the right wrist and hand are slightly puffy. There is no significant redness or warmth. There is no sign of infection. He has an IV in the right dorsal mid forearm, which I assume was placed in the Emergency Department and does not seem to have any issues or problems at this point. The right hand reveals good movement of the digits and satisfactory brush maker machine strength, but he does note some vague generalized discomfort. X-rays of the right wrist revealed only minor degenerative change, but no evidence of more significant problems. IMPRESSION: In the absence of any traumatic event and with fairly normal looking x-rays, I suspect this is more of an inflammatory process and I think gout is the most likely culprit. He notes his symptoms are already improving with his current medical management. I certainly see nothing which would require more aggressive measures. While infection is a possibility, I do not see any fluid collection and would not anticipate the need for any aspiration or certainly any surgical debridement. He is currently quite comfortable with a removable wrist gauntlet splint noting his symptoms are already improving. I think this conservative approach is most reasonable. I will follow along over [address] [address] CONSULTATION Name: IRMA BLANCAS Room #: 236-P [facility] IN M.R.#: [id number] Admission: 02/09/19 Attend Phys: Lashae Hatfield Discharge: Date of : 34 Report #: [id number] the coming few days, but would anticipate advancing activity and discharge whenever he feels stable. <ELECTRONICALLY SIGNED> By: Blue Pettit MD 02/11/19 1125 1321 0011 Blue Pettit MD /nt
--- NOTE | 2019-02-11 15:44 | NUR ---
0730-Pt was sitting up on bed, dozing. Pt was opened his eyes as soon as this nurse called his name. Oriented x 4. Afebrile. Pain on R wrist to touch. Edematous. Immobilizer was off. LS was clear. RA. A.fib w/ BBB. cellulitis on RLE. Dressing was in place. Levo gtt @5mcg. 1000-Pt could not use Bedpan. Pt was on BSC w/ assist x 2. Had BM. [place] [facility] [place] [facility] ECHO was complete at bedside. 1430-Pt was full when the lunch tray was at bedside. Pt just ate his lunch 30% Will continue to monitor
[2019-02-12] VITALS (51 sets, daily range): BP systolic 91–116; BP diastolic 22–72
[2019-02-12 06:27] LABS: ALBUMIN 2.3 g/dL (3.4-5.0); CALCIUM 8.6 mg/dL (8.5-10.1); CREATININE 3.7 mg/dL (0.7-1.3); PHOSPHORUS 5.1 mg/dL (2.5-4.9)
[2019-02-12 06:36] LABS: POTASSIUM 5.1 mmol/L (3.5-5.1)
[2019-02-12 07:01] LABS: HEMATOCRIT 31.9 % (42.0-52.0); HEMOGLOBIN 10.4 gm/dL (14.0-18.0); MCH 32.9 pg (26.0-34.0); MCHC 32.5 g/dL (28.0-37.0); RBC 3.16 mil/uL (4.50-6.00); RDW 15.5 % (10.5-14.5)
--- NOTE | 2019-02-12 08:03 | NUR ---
PT ALERT AND ORIENTED. PT OFF LEVOPHED SINCE 0630 AM THIS MORNING. PT RETAINING URINE IN HIS BLADDER. BLADDER SCAN SHOWED 288ML. FAILED ATTEMPT TO INSERT TAYLOR THIS AM. REPORT GIVEN TO ELIZABETH LORENZO. CHART CHECK PT PROGRESSING TOWARDS GOALS.
--- NOTE | 2019-02-12 08:44 | 2DMMODE ---
[facility] [address] [place] [address] 2 D/M-MODE ECHOCARDIOGRAM Name: IRMA BLANCAS TOMASZ Room #: 236-P ADM IN M.R.#: [id number] Admission: 02/09/19 Attend Phys: Lashae Miles Discharge: Date of : 34 Report #: [id number] THIS REPORT FOR: //name// APPROVED REPORT Study performed: 02/11/2019 09:29:48 EXAM: Comprehensive 2D, Doppler, and color-flow Echocardiogram Patient Location: Bedside Room #: 236 Status: on-call BSA: 2.24 HR: 74 bpm BP: 111/69 mmHg Rhythm: Atrial Fibrillation Other Information Study Quality: Fair Technically limited study due to body habitus, no parasternal window. Risk Factors: Cardiac Risk Factors: HTN, DM Indications Dyspnea CAD S/P CABG (1997) ICD ESRD 2D Dimensions LV Single Plane 4CH: 48.40 % LV Single Plane 2CH: 47.84 % Biplane EF: 46.4 % Volumes Left Atrial Volume (Systole) Single Plane 4CH: 59.55 mL Single Plane 2CH: 57.68 mL LA ESV Index: 30.00 mL/m2 Aortic Valve AoV Peak James.: 1.14 m/s AO Peak Gr.: 5.97 mmHg LVOT Max P.67 mmHg LVOT Mean P.01 mmHg [facility] [address] [place] [address] 2 D/M-MODE ECHOCARDIOGRAM Name: IRMA BLANCAS Room #: 236-P ADM IN M.R.#: [id number] Admission: 02/09/19 Attend Phys: Lashae Miles Discharge: Date of : 34 Report #: [id number] LVOT Max V: 1.08 m/s LVOT Mean V: 0.65 m/s LVOT V1 VTI: 19.94 cm Mitral Valve MV Peak Gr.: 12.04 mmHg MV Mean Gr.: 4.41 mmHg MV Max James.: 1.73 m/s MV Mean James.: 0.95 m/s MV VTI: 417.38 mm MV PHT: 88.72 ms MVA (PHT): 2.48 cm2 Tricuspid Valve TR Peak James.: 2.28 m/s RAP Estimate: 10.00 mmHg TR Peak Gr.: 20.87 mmHg PA Pressure: 31.00 mmHg Left Ventricle The left ventricle is normal size. There is normal LV segmental wall motion. There is normal left ventricular wall thickness. Left ventricular systolic function is normal. The left ventricular ejection fraction is within the low normal range. LVEF is 50%. This study is not technically sufficient to allow evaluation of the LV diastolic function due to atrial fibrillation. Right Ventricle Right ventricle is mildly dilated. The right ventricular systolic function is normal. Device lead is present in the right ventricle. Atria The left atrium size is normal. The right atrium size is normal. Aortic Valve Aortic valve is calcified. Doppler values do no suggest stenosis. No aortic regurgitation is present. There is no aortic valvular stenosis. Mitral Valve Moderate mitral annular calcification. Trace mitral regurgitation. No evidence of mitral valve stenosis. Tricuspid Valve The tricuspid valve is normal in structure. Moderate tricuspid regurgitation. Pulmonary artery pressure is 31 mmHg. [facility] [address] [address] 2 D/M-MODE ECHOCARDIOGRAM Name: IRMA BLANCAS Room #: 236-P [facility] IN M.R.#: [id number] Admission: 02/09/19 Attend Phys: Lashae Miles Discharge: Date of : 34 Report #: [id number] Pulmonic Valve Pulmonic valve is not visualized. Great Vessels The aortic root is normal in size. Ascending aorta is not visualized. IVC is dilated and collapses <50% with inspiration. Pericardium There is no pericardial effusion. <Conclusion> The left ventricle is normal size. Left ventricular systolic function is normal. The left ventricular ejection fraction is within the low normal range. LVEF is 50%. This study is not technically sufficient to allow evaluation of the LV diastolic function due to atrial fibrillation. Right ventricle is mildly dilated. Device lead is present in the right ventricle. Aortic valve is calcified. Doppler values do no suggest stenosis. Moderate mitral annular calcification. Trace mitral regurgitation. Moderate tricuspid regurgitation. Pulmonary artery pressure is 31 mmHg. The aortic root is normal in size. There is no pericardial effusion. <ELECTRONICALLY SIGNED> By: Osvaldo Ridley MD, FACC 02/12/19843 3 3 Osvaldo Ridley MD, FACC /INF
--- NOTE | 2019-02-12 12:59 | NUR ---
Perez catheter placed per [facility] orders. Urine output noted as 350ml from catheter after insertion. Patient had not voided on this shift prior and expressed he did not feel the need to void prior. Patient had one bowel movement this shift. It took a minimum of three staff certified nurse midwife membors to get him to the commode and back. Patient expressed he does it by himself at home, but that he can't use his right hand and our equipment is not the same as home. He expressed he slides to the commode and wheel chair at home, that he does not stand. He has been off levophed since night clerk last documented and patient blood pressure has been above 90mmhg. He is tolerating room air and expressed he feels better than yesterday. Patient to be transferred from room 236 up to room 350, report already called. Patient progressing towards plan of care.
--- NOTE | 2019-02-12 19:53 | NUR ---
PT tranfered from ICU today, pt is A&OX3, But pt is getful, pt's vs and bs are stable , pt is continuing IV abx and pain management, pt 's family stay at pt's bedside.
[2019-02-13 00:15] VITALS: BP 129/38
--- NOTE | 2019-02-13 04:36 | NUR ---
PATIENT IS ALERT AND ORIENTED. PATIENT IS MAX ASSIST. LT AKA. PATIENT HAS A TAYLOR. PATIENT IS RECEVING ANTIBIOTICS. NO FEVER. VITALS STABLE. PATIENTS PAIN IS CONTROLLED WITH MEDICATION. PATIENT IS RESTING COMFORTABLY IN BED. PIERCEM.
[2019-02-13 05:57] LABS: MCH 33.4 pg (26.0-34.0); MCHC 33.1 g/dL (28.0-37.0); MCV 100.8 fL (80.0-100.0); RBC 2.98 mil/uL (4.50-6.00); RDW 15.5 % (10.5-14.5); WBC 8.5 thou/uL (4.0-11.0)
[2019-02-13 06:13] LABS: ALBUMIN 2.2 g/dL (3.4-5.0); CALCIUM 8.3 mg/dL (8.5-10.1); CREATININE 3.8 mg/dL (0.7-1.3); PHOSPHORUS 4.6 mg/dL (2.5-4.9); POTASSIUM 4.6 mmol/L (3.5-5.1)
[2019-02-13 07:22] VITALS: BP 110/47
[2019-02-13 11:27] VITALS: BP 116/49
--- NOTE | 2019-02-13 14:53 | NUR ---
SW reviewed chart and spoke with nursing and attending physician. Pt was transferred to 3 from ICU over the weekend and is slowly progressing towards goals for discharge. OLIVER spoke with pt's dtr, Lalitha, via phone to provide update and discuss discharge plan. Pt's family state that plan is for pt to return home when medically stable. Pt's family will be able to provide assistance if needed. Pt has been to and [facility] in the past. Pt's dtr states that they do not want pt to go to any facility when ready for discharge. Pt's family are agreeable with referral to [facility] , as they have used them in the past. Pt is currently on IV abx. medical planner to fax referral to [facility] for review. OLIVER is following to assist as needed with discharge planning.
--- NOTE | 2019-02-13 15:07 | NUR ---
DISCHARGE PLANNING. NO DISCHARGE DATE AVAILABLE AT THIS TIME. HOME HEALTH RECOMMENDED AT DISCHARGE. PATIENT REFERRAL FAXED TO [facility] FOR HH NEEDS. CALL PLACED TO ERNESTINA TO NOTIFY. [facility] TO FACILITATE ONCE DISCHARGE ORDERS RECEIVED. FOLLOWING.
--- NOTE | 2019-02-13 15:32 | HC ---
[facility] [place] [address] CONSULTATION Name: IRMA BLANCAS Room #: 350-P ADM IN M.R.#: [id number] Admission: 02/09/19 Attend Phys: Lashae Hatfield Discharge: Date of : 34 Report #: [id number] THIS REPORT FOR: //name// CC: Alan Hatfield DATE OF SERVICE: 02/10/2019 INFECTIOUS DISEASE CONSULTATION REASON FOR CONSULTATION: I was asked to evaluate concerning shock and streptococcal bacteremia. HISTORY OF PRESENT ILLNESS: The patient is an 83-year-old presented to the Emergency Room with a 2-week history of right wrist pain. Initially had rather acute onset and treated with nonsteroidal anti-inflammatory. He stated that the pain did go away for a week or so only to return 2 days ago with accelerating discomfort, necessitating admission to the Emergency Room with what he counts as 10/10 pain, it was enough to bring tears to his eyes. Again, notes no trauma. He was given Solu-Medrol and colchicine. He states that the wrist pain has markedly improved now. Denies any fever, chills or sweats. No other joints involved. He does have underlying diabetes with recent poor control. He has coronary artery disease and a defibrillator with a fractured lead. 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 He was on dialysis for a short period of time last year. REVIEW OF SYSTEMS: The patient denies any chest pain, palpitations, cough or sputum production. He notes that his blood pressure has been low for at least the last year as he is on antihypertensive therapy. He states that his blood pressure has been running 80-90 range, systolic. I again tried to confirm with him that that was his systolic blood pressure and he agreed. Denies any cough or sputum. No hemoptysis. No nausea, vomiting or diarrhea. Urine output has been satisfactory. No dysuria or frequency. No back or flank pain. Uses a wheelchair to ambulate. Resides at home. A 10-point review of systems was negative other than what has been described above. 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 C. difficile colitis, cardiac arrest, upper GI bleed, atrial fibrillation. [address] [address] CONSULTATION Name: IRMA BLANCAS Room #: 350-P [facility] IN M.R.#: [id number] Admission: 02/09/19 Attend Phys: Lashae Hatfield Discharge: Date of : 34 Report #: [id number] ALLERGIES: AMLODIPINE, QUINAPRIL, TICLOPIDINE. MEDICATIONS: Calcium, Zocor, iron, aspirin, Plavix, Levemir, potassium, Starlix, Imodium. Subsequently, he was placed on Solu-Medrol 125 mg initially and then 40 mg q.i.d. He is also on colchicine, given vancomycin in the Emergency Room and cefepime continues. FAMILY HISTORY: Noncontributory. SOCIAL HISTORY: Nonsmoker, no significant alcohol intake. PHYSICAL EXAMINATION: VITAL SIGNS: Afebrile, blood pressure in the 90s systolic, heart rate 70, respiratory rate 20. GENERAL: He is alert, cooperative, conversant, in no acute distress. SKIN: Without rash or decubitus. No palpable adenopathy. HEENT: Eyes, without scleral icterus. Mouth without mucositis. NECK: Supple. LUNGS: Crackles in the bases bilaterally with no consolidation. HEART: Regular without appreciable murmur, gallop or rub. CHEST: Left chest, defibrillator pocket without erythema or tenderness. ABDOMEN: Soft, nontender, no hepatosplenomegaly or mass. Left AKA site unremarkable, well-healed incision. EXTREMITIES: Right foot with 1+ edema. No open ulcerations. Right hand had 1+ swelling, edema with erythema over the wrist. He had tenderness involving the wrist and limited range of motion due to this. Pulses in the wrist were palpable. Capillary refill in his fingers were normal. Sensation in his hand normal. His right lower extremity with 2+ edema associated venous stasis dermatitis and cellulitis with several small wounds present. NEUROLOGIC: Cranial nerves were intact. Strength in his upper and lower extremities symmetric and normal. Mood normal. No anxiety or depression. BACK: Nontender. LABORATORY STUDIES: Blood cultures 2/2 showing gram-positive cocci consistent with strep. Electrocardiogram: Atrial fibrillation. MRSA screen negative. Lactic acid 2.9. Sodium 138, potassium 5.5, bicarbonate of 15, creatinine 3.4. Hemoglobin 10.6, WBC 34.3, platelet count 140,000. CTA of the head with no acute change. AST 70, ALT 26, bilirubin 1.5, alkaline phosphatase 192. CRP 81. Uric acid 6.1. Chest x-ray, pulmonary edema. X-rays of the wrist, soft tissue swelling. IMPRESSION: An 83-year-old with atrial fibrillation, ischemic cardiomyopathy and diabetes, presents with right wrist pain, hypotension, streptococcal bacteremia in the setting also of underlying gout. He has never had gout in his wrist before. Although the intensity of the pain would support this, I am concerned about the bacteremia and the possibility of seeded his wrist. I did [facility] [address] [place] [address] CONSULTATION Name: IRMA BLANCAS Room #: 350-P ADM IN M.R.#: [id number] Admission: 02/09/19 Attend Phys: Lashae Hatfield Discharge: Date of : 34 Report #: [id number] not hear a significant diastolic murmur, but endocarditis would also be a consideration. He does have venous stasis disease involving the right lower extremity with small ulceration and possible cellulitis. This may also be a source of infection. 1. Diabetes. 2. Chronic kidney disease. 3. Atrial fibrillation. 4. Coronary artery disease. 5. Ischemic cardiomyopathy with defibrillator. 6. Peripheral vascular disease. 7. History of Clostridium difficile. RECOMMENDATIONS: We will continue with IV antibiotic therapy, ICU support for blood pressure and Cardiology followup. Check echocardiogram. Repeat his blood cultures, sedimentation rate, stop corticosteroids, monitor his leukocytosis, ask Orthopedic Surgery for aspiration of the wrist. <ELECTRONICALLY SIGNED> By: Hardik Almanzar MD 02/13/19 1532 [id number] Hardik Almanzar MD /nt
[2019-02-13 16:53] VITALS: BP 111/30
--- NOTE | 2019-02-13 19:30 | NUR ---
pt is A&OX3, PT's vs and bs are stable, pt is continuing iv abx , pt had medication for R arm pain, pt's Perez has DC at 1200pm, after then pt has void 3 times, bladder scan at 1800pm after void, no residual. pt's family stay at pt's bedside.
[2019-02-13 19:59] VITALS: BP 133/68
[2019-02-14 04:29] VITALS: BP 120/46
[2019-02-14 07:00] LABS: ALBUMIN 2.1 g/dL (3.4-5.0); CALCIUM 8.2 mg/dL (8.5-10.1); CREATININE 3.8 mg/dL (0.7-1.3); PHOSPHORUS 4.3 mg/dL (2.5-4.9); POTASSIUM 4.2 mmol/L (3.5-5.1)
[2019-02-14 07:51] VITALS: BP 95/51
--- NOTE | 2019-02-14 08:15 | NUR ---
PAITENT IS ALERT AND ORIENTED. PATIENT IS Q2 TURN. PATIENT IS ROOM AIR. PATIENT IS ON IVAB FOR INFECTION. NO FEVER. PATINET IS A FIB ON TELE. PATIENT HAS VOIDED ACCURATE AMOUNT. PATIENTS PAIN MEDICATION IS TREATING HIS PAIN. SWELLING HAS IMPROVED. PATIENT IS RESTING COMFORTALBY IN BED. WCM.
--- NOTE | 2019-02-14 09:44 | HC ---
[facility] [place] [address] CONSULTATION Name: IRMA BLANCAS Room #: 350-P ADM IN M.R.#: [id number] Admission: 02/09/19 Attend Phys: Lashae Hatfield Discharge: Date of : 34 Report #: [id number] THIS REPORT FOR: //name// CC: Alan Hatfield DATE OF SERVICE: 02/12/2019 REASON FOR CONSULTATION: Chronic kidney disease. REASON FOR THE PRESENTATION: Rest pain. HISTORY OF PRESENT ILLNESS: This is a very well-known patient to me. This is an 83-year-old with extensive past medical history, who presented to the emergency room for rest pain. He has peripheral vascular disease, COPD, chronic kidney disease and had previously required hemodialysis. When he presented to the emergency room, he was found to be hypotensive. He was admitted to the ICU and initiated on an appropriate septic protocol. ID has been consulted. Orthopedic consultation was also obtained regarding his rest pain. He was found to have Gram-positive cocci in his blood. White blood cell count on presentation was 34,000. Creatinine on his presentation was 3.6 and has gone up to 3.7 mandating a nephrology consultation. It does look like that the patient's creatinine has been in the 2.5-3 all through the last year. As stated above, previously the patient was on hemodialysis. He ran into some issues with urinary retention this morning, blood pressure seems to have stabilized. Primary team has asked me to evaluate him and assist with his acute kidney injury, chronic kidney disease. HOME MEDICATIONS: 1. Plavix. 2. ____. 3. Potassium chloride. 4. Torsemide. PAST MEDICAL HISTORY: Extensive and includes the followin. Peripheral vascular disease. 2. Chronic kidney disease with a baseline creatinine of around 3. 3. Remote history of dialysis dependent. 4. Diabetes mellitus. 5. Status post above-knee amputation on the left side. 6. Coronary artery disease. 7. Status post stenting. 8. Right big toe amputation. 9. Peripheral vascular disease. 10. Ischemic cardiomyopathy. 11. Peripheral neuropathy. [facility] [address] [place] [address] CONSULTATION Name: IRMA BLANCAS Room #: 350-P [facility] IN M.R.#: [id number] Admission: 02/09/19 Attend Phys: Lashae Hatfield Discharge: Date of : 34 Report #: [id number] SOCIAL HISTORY: Remote history of smoking. FAMILY HISTORY: Significant for diabetes mellitus. REVIEW OF SYSTEMS: GENERAL: Significant for occasional fever and chills. CARDIOVASCULAR: No chest pain or palpitation. PULMONARY: No cough or hemoptysis. GASTROINTESTINAL: No nausea or vomiting. GENITOURINARY: No frequency, no urgency. MUSCULOSKELETAL: As per the history of present illness. PHYSICAL EXAMINATION: GENERAL: He is alert, oriented. VITAL SIGNS: Temperature is 36.7, blood pressure this morning is 114/82. HEAD AND NECK: No jugular venous distention. CHEST: No crackles. CARDIOVASCULAR: No rub. ABDOMEN: Soft, nontender. EXTREMITIES: Lower extremities, amputee on the left side, edema on the right side. LABORATORY DATA: Values reviewed. White blood cell count of 17,000, platelet is 128. Sodium is 129, BUN is 83, creatinine is 3.7. ASSESSMENT, IMPRESSION AND PLAN: 1. Chronic kidney disease. 2. Septic shock with Gram-positive cocci. 3. Right wrist pain with what seems to be monoarthritis. 4. Diabetes mellitus. 5. Atrial fibrillation. 6. Coronary artery disease, post coronary artery bypass graft. 7. History of ventricular tachycardia, ventricular fibrillation 8. Nonfunctioning automated implantable cardioverter-defibrillator. 9. The patient's creatinine is at baseline. He had some issues with urinary retention and I asked the nurse to place a Perez catheter. We will place the patient back on his diuretics once he is euvolemic. 10. Antibiotic by ID for his septic shock. 11. We will continue to ____. <ELECTRONICALLY SIGNED> By: Roberta Gallego MD 02/14/19 0944 [id number] Roberta Gallego MD /nt
[2019-02-14 11:45] VITALS: BP 115/66
[2019-02-14] MEDS ORDERED: HUMALOG100 UNIT/1 SUBQ (11:52)
[2019-02-14] MEDS ORDERED: PENICILLIN G PO5 MM1 IV (11:53)
--- NOTE | 2019-02-14 14:52 | NUR ---
Following for d/c planning needs. Spoke with pt and pt's son. Pt wants to return home. Spouse has dementia and is currently having oral surgery for abscessed tooth. Pt has been living at home with and has been providing care for pt. Pt has not been able to transfer out of bed on his own because of his right arm. Pt does not qualify for [facility], per rn cardiac rehab. Son is agreeable to SNF, and wants referral sent to [facility]. Asked financial planner to fax referral. Will remain available to assist as needed.
[2019-02-14 15:39] VITALS: BP 129/56
[2019-02-14 19:32] VITALS: BP 132/62
[2019-02-15 04:05] VITALS: BP 122/53
[2019-02-15 04:24] VITALS: BP 114/52
[2019-02-15 05:50] LABS: ALBUMIN 2.1 g/dL (3.4-5.0); CALCIUM 8.3 mg/dL (8.5-10.1); CREATININE 3.7 mg/dL (0.7-1.3); PHOSPHORUS 4.3 mg/dL (2.5-4.9); POTASSIUM 4.1 mmol/L (3.5-5.1)
--- NOTE | 2019-02-15 06:26 | NUR ---
PT USES URINAL AND BEDPAN TO VOID. PT REQUESTED ORAL PAIN MEDICATION 1x. PT USES [facility] AT HOME TO AMBULATE. PT HAS LEFT AKA AND FALL PRECAUTIONS IN PLACE. REDRESSED PICC SITE DUE TO SOME MINIMAL BLOOD DRAINAGE. FOLLOWING POC WITH IVPB ANTIBIOTICS. HOURLY ROUNDING.
[2019-02-15 07:04] VITALS: BP 115/62
[2019-02-15 11:09] VITALS: BP 116/54
--- NOTE | 2019-02-15 11:54 | NUR ---
Nutrition: Pt assessed early for day 6 LOS. Admit: hypotension, R hand pain, EMI. Hx DM II, HTN, CHF, ESRD (not on dialysis), a fib, CAD, gout. He is on a renal diet, averaging just shy of 60% of meals per the last 3 days. Visited pt who states he is eating less than he normally would at home d/t not being as hungry or as active, but is really liking all the food/meals. States he loves his fruits, vegetables, eggs and tries to eat fish at least 1x/week. He denies any additional nutrition concerns/intervention needs. RD proceeded to provide extensive renal diet education on needs for low K+, low phos and low Na as he had not had education in the past about these necessary nutrient restrictions. Spent at least 15-20 mins in education, with details handouts provided. K+ and Phos WNL per daily labs. Low nutrition risk otherwise.
--- NOTE | 2019-02-15 12:15 | NUR ---
SW reviewed chart and spoke with nursing and attending physician. Pt is progressing towards goals for discharge. Pt's family requesting post-acute placement. [facility]errals [facility] to [facility] accept[facility] to do an onsite eval today. Awaiting input from JI. OLIVER met with pt at bedside to provide update. Pt requests that SW contact his son to discuss placement. OLIVER spoke with pt's son, Zak, via phone, who states [facility] is their first choice, then [facility], and then [facility]. SW explained need for insurance authorization. Pt's son verbalized understanding. SW is following to assist as needed with discharge planning.
[2019-02-15 15:01] VITALS: BP 120/53
[2019-02-15 19:30] VITALS: BP 116/49
--- NOTE | 2019-02-16 03:51 | NUR ---
Assumed pt care at 1900. Pt is A/OX4,VSS.Up with maximum assist william lift from chair to bed. C/o pain to right arm/thigh medicated with Orland with relief reported. Edema persists to RLE/UE 3+ encouraged to keep extremity elevated. Central line on right subclavian patent and drawing blood. Fall precautions in place,calls approp. Resting quietly at this time with no distress noted, will continue to monitor pt.
[2019-02-16 04:33] VITALS: BP 119/52
[2019-02-16 05:07] LABS: CALCIUM 8.3 mg/dL (8.5-10.1); CREATININE 3.4 mg/dL (0.7-1.3); PHOSPHORUS 4.3 mg/dL (2.5-4.9); POTASSIUM 3.9 mmol/L (3.5-5.1)
[2019-02-16 07:06] VITALS: BP 115/52
[2019-02-16 11:30] VITALS: BP 115/50
[2019-02-16 16:12] VITALS: BP 115/45
--- NOTE | 2019-02-16 16:15 | NUR ---
BEDSIDE REPORT GIVEN TO TRINA JOHNSON.
[2019-02-16 19:31] VITALS: BP 120/55
[2019-02-17 04:01] VITALS: BP 113/47
[2019-02-17 06:57] LABS: CALCIUM 8.7 mg/dL (8.5-10.1); CREATININE 3.2 mg/dL (0.7-1.3); PHOSPHORUS 4.5 mg/dL (2.5-4.9); POTASSIUM 3.8 mmol/L (3.5-5.1)
[2019-02-17 07:15] VITALS: BP 110/44
--- NOTE | 2019-02-17 07:20 | NUR ---
FOLLOWING POC WITH IVPB ANTIBIOTICS. PT ASKED 2X FOR ORAL PAIN MEDICATION. PT IS READY FOR REHAB HE STATES. HOURLY ROUNDING. VSS AND TELE SHOWS [facility].
--- NOTE | 2019-02-17 10:02 | NUR ---
OLIVER reviewed chart and spoke with nursing and attending physician. Pt is progressing towards goals for discharge to post-acute care. Pt will need shelter IV abx. OLIVER faxed clinical updates and discharge orders/summary to [facility] for review. Will need insurance authorization for admission to post-acute. OLIVER updated Alesha at [facility]. Chart copy requested. OLIVER is following to assist as needed with discharge planning.
[2019-02-17 11:45] VITALS: BP 118/67
[2019-02-17 16:31] VITALS: BP 119/52
--- NOTE | 2019-02-17 18:31 | NUR ---
Assumed care approx. 0700 this AM. Patient has had DC orders for a few days, and recieved insurance auth today. rigging up man time was scheduled for 1700, but Dr. Valentino Almanzar wanted to see the CT results of his wrist before discharge. CT was called and asked for the scan to be read. Dr. Valentino Almanzar paged back with CT results and gave the okay for the patient to leave. Patient to follow back up in [address] Almanzar which was already placed in the discharge paper work. Orders to leave the PICC line in as the patient will be recieving half-way IV abx at facility post discharge. Tele removed from patient. Nurse aides used lift to place patient in wheelchair. Patient left with chart copy at approx. 1800 this evening in wheelchair van.
== END 2019-02-17 18:00 | DRG 871 ==
LOC: ER 16:49 → EROBS 23:37 → ICU 23:37 → 3W 23:37 → ICU 02-10 02:46 → 3W 02-12 15:06
PROVIDERS: Emergency Medicine; Hospitalist; Internal Medicine Nephrology; Nurse Practitioner; Nurse Practitioner Family; ADMIT Hospitalist
PROC: 0JH63XZ Insertion of Tunneled Vascular Access Device into Chest Subcutaneous Tissue and Fascia, Percutaneous Approach (ICD-10-PCS; principal; 2019-02-14)
PROC: 02HV33Z Insertion of Infusion Device into Superior Vena Cava, Percutaneous Approach (ICD-10-PCS; 2019-02-14)
PROC: B5181ZA Fluoroscopy of Superior Vena Cava using Low Osmolar Contrast, Guidance (ICD-10-PCS; 2019-02-14)
PROC: B548ZZA Ultrasonography of Superior Vena Cava, Guidance (ICD-10-PCS; 2019-02-14)
DX: A40.8 Other streptococcal sepsis (principal); R65.21 Severe sepsis with septic shock; N18.6 End stage renal disease; I13.2 Hypertensive heart and chronic kidney disease with heart failure and with stage 5 chronic kidney disease, or end stage renal disease; N17.9 Acute kidney failure, unspecified; L03.115 Cellulitis of right lower limb; I25.5 Ischemic cardiomyopathy; E11.22 Type 2 diabetes mellitus with diabetic chronic kidney disease; M10.9 Gout, unspecified; E11.51 Type 2 diabetes mellitus with diabetic peripheral angiopathy without gangrene; E78.5 Hyperlipidemia, unspecified; J44.9 Chronic obstructive pulmonary disease, unspecified; E11.42 Type 2 diabetes mellitus with diabetic polyneuropathy; M13.131 Monoarthritis, not elsewhere classified, right wrist; I50.9 Heart failure, unspecified; I48.91 Unspecified atrial fibrillation; I25.10 Atherosclerotic heart disease of native coronary artery without angina pectoris; I25.2 Old myocardial infarction; Z95.1 Presence of aortocoronary bypass graft; Z88.8 Allergy status to other drugs, medicaments and biological substances; Z79.899 Other long term (current) drug therapy; Z79.82 Long term (current) use of aspirin; Z79.4 Long term (current) use of insulin; Z87.19 Personal history of other diseases of the digestive system; Z87.891 Personal history of nicotine dependence; Z89.612 Acquired absence of left leg above knee; Z83.3 Family history of diabetes mellitus; Z95.810 Presence of automatic (implantable) cardiac defibrillator
CPT/HCPCS: 10203; 10879

== ENCOUNTER 2019-04-03 11:48 | Day surgery (SDC) | payer OTHER ==
[~2019-04-03] VITALS: Ht 182.9 cm; Wt 88.0 kg
[~2019-04-03 11:48] MED LIST changes: +HUMALOG100 UNIT/1 SUBQ; +KLOR-CON 10 ER10 MEQ PO; +LEVEMIR FL100 UNIT/2 SUBQ; +LOPERAMIDE 2 MG2 M1 PO; +PENICILLIN G PO5 MM1 IV; +STARLIX60 MG PO
[2019-04-03 13:01] LABS: HEMATOCRIT 26.9 % (42.0-52.0); HEMOGLOBIN 8.9 gm/dL (14.0-18.0); MCH 33.1 pg (26.0-34.0); MCV 100.3 fL (80.0-100.0); RBC 2.68 mil/uL (4.50-6.00); RDW 15.9 % (10.5-14.5); WBC 5.1 thou/uL (4.0-11.0)
[2019-04-03 13:09] LABS: CALCIUM 9.1 mg/dL (8.5-10.1); CREATININE 2.9 mg/dL (0.7-1.3); POTASSIUM 4.1 mmol/L (3.5-5.1)
[2019-04-03 13:54] VITALS: BP 99/43
[2019-04-03 17:06] VITALS: BP 101/54
[2019-04-03 17:59] VITALS: BP 107/57
[2019-04-03 19:02] LABS: FOLIC ACID 12.2 ng/mL (8.6-58.9)
[2019-04-03 19:45] VITALS: BP 94/45
[2019-04-04 04:30] VITALS: BP 83/43
[2019-04-04 06:17] LABS: HEMATOCRIT 29.2 % (42.0-52.0); HEMOGLOBIN 9.4 gm/dL (14.0-18.0); MCHC 32.3 g/dL (28.0-37.0); MCV 102.1 fL (80.0-100.0); RBC 2.86 mil/uL (4.50-6.00); WBC 3.5 thou/uL (4.0-11.0)
[2019-04-04 06:37] LABS: CALCIUM 8.4 mg/dL (8.5-10.1); CREATININE 2.9 mg/dL (0.7-1.3); MAGNESIUM 1.8 mg/dL (1.8-2.4); POTASSIUM 4.6 mmol/L (3.5-5.1)
[2019-04-04 08:14] VITALS: BP 88/41
--- NOTE | 2019-04-04 11:33 | HC ---
[facility] [place] [address] CONSULTATION Name: IRMA BLANCAS Room #: 440-P [facility] M.R.#: [id number] Admission: 04/03/19 Attend Phys: Yanira Schwartz, Discharge: Date of : 34 Report #: [id number] THIS REPORT FOR: //name// CC: Alan Schwartz DATE OF SERVICE: 04/03/2019 INFECTIOUS DISEASE CONSULTATION REASON FOR CONSULTATION: Right wrist septic arthritis. HISTORY OF PRESENT ILLNESS: The patient is an 83-year-old who was initially evaluated on 02/10/2019 with his hospitalization where he was diagnosed with Streptococcus dysgalactiae bacteremia and suspected septic right wrist. The organism was sensitive to penicillin. He was treated with such via right chest PICC catheter. Orthopedic Surgery evaluation was obtained. No surgical intervention recommended. Prior to his discharge on 02/17/2019, I obtained CT scan of his wrist. Due to his AICD, he was unable to undergo MRI scan. 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 There was no fluid collection or evidence of tenosynovitis identified. There were no foreign bodies. He was discharged to [facility] unit. One week follow up on 02/23/2019 still had a fair amount of swelling and limited strength in the wrist. He was referred back to Orthopedic Hand Surgery for further evaluation. At that time, his sedimentation rate was 48 with CRP 81. White count 17, creatinine 3, alkaline phosphatase 407, AST 40, ALT 20. The patient did not follow up the following week and had not yet seen orthopedic surgery. Referral was recent further evaluation. By 03/07/2019, he was [facility]. He was unable to continue penicillin and was switched to 2 grams of ceftriaxone every day. He returned on 03/16/2019 with continued discomfort in the wrist. He had still not followed up with Orthopedic Surgery, noting it was scheduled for the following week. I discussed the case with Dr. Schwartz, who evaluated the patient and recommended surgical intervention. He was taken to surgery today for debridement of the right wrist. I am awaiting operative findings and cultures. He had repeat CT scan done, which showed progressive changes in the wrist and concern for osteomyelitis. The patient has history of gouty arthritis and diabetes along with peripheral vascular disease. ALLERGIES: AMLODIPINE, QUINAPRIL, TICLOPIDINE. MEDICATIONS: As noted on his MAR including ceftriaxone up until 3 days ago where he was taken off for a short period of time in anticipation of surgical debridement. Oral vancomycin, allopurinol, aspirin, calcium carbonate, clopidogrel, iron, insulin, lactobacillus, loperamide, metoprolol, Nateglinide, [address] [address] CONSULTATION Name: IRMA BLANCAS Room #: 440-P [facility] M.R.#: [id number] Admission: 04/03/19 Attend Phys: Yanira Schwartz, Discharge: Date of : 34 Report #: [id number] potassium, Protonix, simvastatin, torsemide, tramadol. PAST MEDICAL HISTORY: Diabetes, peripheral vascular disease, gastroesophageal reflux, hyperlipidemia, congestive heart failure, sudden cardiac arrest, gout, atrial fibrillation, RI, chronic kidney disease, dementia mild, hypertension, lymphedema, left lzodu-rfa-kral amputation, coronary artery bypass grafting, cardiac defibrillator, C. difficile colitis. FAMILY HISTORY: Noncontributory. SOCIAL HISTORY: Nonsmoker, no significant alcohol intake. REVIEW OF SYSTEMS: The patient has noticed more rash to his groin and left leg for the last 3 days. He has treated this with topical agents and Benadryl. No other cardiopulmonary, GI or complaints. Stools have been soft. He does have a history of C. difficile colitis. Therefore, the vancomycin has been utilized. PHYSICAL EXAMINATION: VITAL SIGNS: He is afebrile, hemodynamically stable. GENERAL: He is alert and cooperative and pleasant, in no acute distress. EYES: Without scleral icterus. MOUTH: Without mucositis. NECK: Supple. LUNGS: Clear. HEART: Regular, without murmur. ABDOMEN: Soft and nontender with no hepatosplenomegaly or mass. Right wrist was in surgical wrap. A Hemovac was in place. EXTREMITIES: Fingers were warm to the touch with good capillary refill. Sensation intact. Left lower extremity ywkyi-rqh-dswl amputation site was unremarkable. He had intertrigo involving his groin with evidence of rash also to the wqnjw-ghk-jxqz amputation. He had venous stasis dermatitis changes to the right lower extremity below the knee. He has small ulcer over the right lateral malleolus with small area of fibrinous debris at the base. No surrounding cellulitis. LABORATORY STUDIES: Hemoglobin 8.9, WBC 5.1, platelet count 196,000. Sodium 138, potassium 4.1, bicarbonate 28, creatinine 2.9. Gram stain showed WBCs with no organisms seen from the tissue of the wrist. IMPRESSION: An 83-year-old diabetic with peripheral vascular disease, gouty arthritis hospitalized in mid January with group G Streptococcus bacteremia and suspected septic arthritis. Has failed to improve despite prolonged IV antibiotic therapy. Taken to surgery today for further surgical debridement. 1. Groin rash, likely yeast dermatitis. 2. Peripheral vascular disease. [facility] [address] [place] [address] CONSULTATION Name: IRMA BLANCAS Room #: 440-P [facility]..#: [id number] Admission: 04/03/19 Attend Phys: Yanira Schwartz, Discharge: Date of : 34 Report #: [id number] 3. Cardiovascular disease. 4. Chronic kidney disease. 5. Mild dementia. 6. Gouty arthritis. RECOMMENDATIONS: We will continue IV antibiotic therapy. He has a right upper extremity PICC, which is stable and functional. We will arrange further IV antibiotic therapy following surgical debridement. We will begin broader coverage, pending cultures. Await pathology report. Control blood glucose. Discussed with Orthopedic Surgery and patient's family at the bedside. <ELECTRONICALLY SIGNED> By: Hardik Almanzar MD 04/04/19 1133 1758 0247 Hardik Almanzar MD /nt
[2019-04-04 15:05] VITALS: BP 88/41
[2019-04-04 15:17] VITALS: BP 88/41
[2019-04-04 16:16] VITALS: BP 88/41
--- NOTE | 2019-04-05 17:07 | PATH ---
[facility] [address] [place] [address] PATHOLOGY RPT PROCEDURE Name: SHAWANDAIRMA Room #: DE[facility] M.R.#: [id number] Admission: 04/03/19 Date of : 34 Discharge: 04/04/19 Report #: [id number] Path Case #: [id number] [facility] Accession Number: [id number] . 01 Material submitted: . body - FLEXOR TENOSYNOVECTOMY . 01 Clinical history: . Check for crystals . 02 Diagnosis: Tissue, flexor tenosynovectomy: - Marked acute inflammation as well as fibrinoid degeneration. - No urate or calcium pyrophosphate crystals identified on touch prep smear examined. (IUV:lesly; 04/05/2019) MBR 04/05/2019 1256 Local . 02 Comment: Examination of the touch prep smear labeled with the patient's name, performed from the fresh tissue shows no definite identifiable urate or calcium pyrophosphate crystals. (IUV:lean leader; 04/05/2019) . 02 Electronically signed: . Maya Guthrie MD, Pathologist NPI- [id number] . 01 Gross description: . The specimen is received fresh, labeled "Irma Blancas, flexor tenosynovectomy". The site is verified on the problem specimen form as, "R wrist". Received are multiple segments of pink-vang fibrous soft tissue measuring 2.2 x 2.0 x 0.5 cm in aggregate dimensions. The specimen is submitted entirely in cassette A1 and is loaded onto the processor into 70% alcohol with no exposure to formalin. A touch prep slide is made. (CAA; 04/04/2019) QAC/QAC 04/04/2019 1354 Local . 02 Pathologist provided ICD-10: M65.831 . 02 CPT . 799251 Specimen Comment: A courtesy copy of this report has been sent to [phone] Specimen Comment: Report sent to Performed at: [address] [place] [address] PATHOLOGY RPT PROCEDURE Name: IRMA BLANCAS Room #: [facility] M.R.#: [id number] Admission: 04/03/19 Date of : 34 Discharge: 04/04/19 Report #: [id number] Path Case #: [id number] [address], [place], [place] [id number] MD Emanuel South MD Phone: [phone] Performed at: [address] [id number] MD Maya Guthrie MD Phone: [phone]
--- NOTE | 2019-04-22 08:45 | O ---
[facility] [place] [address] OPERATIVE REPORT Name: IRMA BLANCAS Room #: [facility]P [facility] M..#: [id number] Admission: 04/03/19 Attend Phys: Yanira Schwartz, Discharge: 04/04/19 Date of : 34 Report #: [id number] THIS REPORT FOR: //name// CC: Alan Schwartz DATE OF SERVICE: 04/03/2019 PREOPERATIVE DIAGNOSES: Right septic wrist with osteomyelitis and flexor tenosynovitis with possible flexor tendon ruptures. POSTOPERATIVE DIAGNOSES: Right septic wrist with osteomyelitis and flexor tenosynovitis and rupture of the FDP tendons to the ring and small fingers and rupture of the FDS tendon to the small finger. PROCEDURE PERFORMED: Incision and debridement of right skin, subcutaneous tissue and bone, wrist joint and flexor tenosynovectomy. SURGEON: Yanira Schwartz MD ANESTHESIA: General mask anesthesia. ESTIMATED BLOOD LOSS: 2 mL. TOURNIQUET TIME: 56 minutes. SPECIMENS: Sent to pathology and microbiology as well as swabs were sent to microbiology. COMPLICATIONS: None. CONDITION: Stable. DISPOSITION: Recovery room. INDICATIONS: The patient is an 83-year-old male with the above-mentioned diagnosis. He elects for operative treatment. The risks, benefits, alternatives and complications were discussed including but not limited to inability to resolve the infection necessitating more surgeries, possibly even an amputation with damage to blood vessels or nerves creating an infection, wound healing problems, and stiffness. We had previously discussed possibility of more surgery for any tendon reconstruction if tendon ruptures were found. Informed consent was obtained. The correct extremity was identified and labeled by myself after verbal confirmation of the patient as well as visual confirmation and signed informed consent. We initially discussed with both volar and dorsal incisions. Please see the operative note for further [facility] [address] [place] [address] OPERATIVE REPORT Name: IRMA BLANCAS Room #: DEP [facility]..#: [id number] Admission: 04/03/19 Attend Phys: Yanira Schwartz, Discharge: 04/04/19 Date of : 34 Report #: [id number] discussion of the incisions that were utilized. DESCRIPTION OF PROCEDURE: The patient was brought back to the operating room and placed on the operating table in the supine position. Tourniquet was placed over padding on the patient's right upper extremity. The right upper extremity was sterilely prepped and draped in the usual fashion. Final timeout was taken to verify correct patient, operative procedure, operative site, all concurred. He did receive a gram of vancomycin at the conclusion of the case after cultures were taken and the tourniquet deflated. The arm was elevated, but was not exsanguinated and the tourniquet inflated. Next, a volar approach was done to the wrist over the carpal tunnel extending across the wrist crease at an angle incision total of approximately 10 cm. First, attention was placed to the distal portion of the incision. The dissection was carried down through subcutaneous tissue with tenotomy scissors. The transverse carpal ligament was easily identified and incised. There was some cloudy mildly purulent fluid that immediately was expressed. There was some mild amount of fluid tendon that had been ruptured and also protruded easily from the wound. The carpal tunnel was then released. The median nerve was identified and carefully protected. There was a significant amount of synovitis around the flexor tendons. This was also thoroughly debrided while taking care to protect any neurovascular structures. There was a 2 cm volar transverse rent in the radiocarpal joint and the radiocarpal joint was easily visible. With traction, I was able to easily see the joint and so at this point, I elected to debride the joint from the volar side, instead of the dorsal side to potentially avoid seating another area with any type of infection. Next, the lunate was curetted to nice healthy bone. A synovectomy was performed with a rongeur. Otherwise, the cartilage actually looked to be in fairly good condition. The curette was used to debride the distal ulna and the distal volar radius. This can be seen on images and fluoroscopic guidance was utilized for this. Next, the wound was then thoroughly irrigated with 3 liters of antibiotic saline using mostly pulsatile lavage, but also an angiocatheter for deep irrigation. Again, the joint was easily distracted and I felt I was able to thoroughly irrigate and debride the joint with a Pulsavac. A deep drain was then placed. The skin was closed with 4-0 nylon suture. The drain was sewn and also affixed with an Op-Site. The wound was dressed with Xeroform and sterile gauze. He was placed in a bulky dressing and a volar slab splint. All fingers were pink with brisk capillary refill at the conclusion of case after deflation of tourniquet. All sponge and needle counts were correct. The patient was transferred to postoperative recovery room in stable condition. <ELECTRONICALLY SIGNED> By: Yanira Schwartz MD 04/22/19 0845 [id number] Yanira Schwartz MD /nt
== END 2019-04-04 17:25 | disposition home health service (06) ==
LOC: OR 11:48 → TBA 11:48 → OR 14:52 → 4S 16:54 → OR 04-04 17:25
PROVIDERS: Internal Medicine; Orthopaedic Surgery Hand Surgery
DX: M65.831 Other synovitis and tenosynovitis, right forearm (principal); M86.8X3 Other osteomyelitis, forearm; M00.831 Arthritis due to other bacteria, right wrist; M66.341 Spontaneous rupture of flexor tendons, right hand; E11.22 Type 2 diabetes mellitus with diabetic chronic kidney disease; D63.1 Anemia in chronic kidney disease; N18.6 End stage renal disease; I48.91 Unspecified atrial fibrillation; I25.2 Old myocardial infarction; I42.9 Cardiomyopathy, unspecified; E78.5 Hyperlipidemia, unspecified; M86.9 Osteomyelitis, unspecified; M10.9 Gout, unspecified; Z98.890 Other specified postprocedural states; Z79.899 Other long term (current) drug therapy; Z95.810 Presence of automatic (implantable) cardiac defibrillator; Z88.8 Allergy status to other drugs, medicaments and biological substances; Z79.01 Long term (current) use of anticoagulants
CPT/HCPCS: 10102; 50010; 50101; 50386; 53078; 56526; 57006; 57091; 57103; 57178; 62110; 62900; 70005

== ENCOUNTER 2019-04-24 14:07 | Inpatient (IN) | payer OTHER ==
[~2019-04-24] VITALS: Ht 182.9 cm; Wt 94.0 kg
[2019-04-24 15:00] VITALS: BP 98/50
[2019-04-24] MEDS ORDERED: VANCOMYCIN (15:13)
[2019-04-24] MEDS ORDERED: ERTAPENEM1 GM IV (15:15)
[2019-04-24] MEDS ORDERED: PERCOCET 5-3251 EACH PO (15:19)
[2019-04-24] MEDS ORDERED: TRAMADOL 50 MG50 MG PO (15:20)
[2019-04-24] MEDS ORDERED: FLORANEX TABLE1 EACH PO (15:21)
[2019-04-24 16:25] LABS: RDW 15.7 % (10.5-14.5)
[2019-04-24 16:28] LABS: HEMATOCRIT 20.7 % (42.0-52.0); HEMOGLOBIN 6.7 gm/dL (14.0-18.0); MCHC 32.6 g/dL (28.0-37.0); MCV 101.5 fL (80.0-100.0); OBSERVED RETIC COUNT 1.56 % (0.6-2.6); RBC 2.04 mil/uL (4.50-6.00); WBC 4.3 thou/uL (4.0-11.0)
[2019-04-24 16:36] LABS: % SATURATION 13 % (20-39); IRON 26 ug/dL (65-175); TIBC 208 ug/dL (250-450)
[2019-04-24 16:38] LABS: ALBUMIN 1.9 g/dL (3.4-5.0); CREATININE 2.5 mg/dL (0.7-1.3); MAGNESIUM 1.7 mg/dL (1.8-2.4); POTASSIUM 4.1 mmol/L (3.5-5.1); TOTAL BILIRUBIN 0.4 mg/dL (<0.1-1.0); TOTAL PROTEIN 6.4 g/dL (6.4-8.2)
[2019-04-24 16:52] LABS: APTT 36.6 Seconds (24.5-32.8); INR 1.3; PROTIME 13.2 Seconds (9.3-11.4)
--- NOTE | 2019-04-24 17:00 | NUR ---
PT ADMITTED DIRECT ADMIT FOR BLLOD TRANSFUSION...PLAN NPO AFTER MIDNIGHT FOR POSSIBLE GI INTERVENTION..
[2019-04-24 17:30] LABS: FOLIC ACID 9.9 ng/mL (8.6-58.9); TSH 1.936 uIU/mL (0.358-3.740)
[2019-04-24 20:00] VITALS: BP 104/48
[2019-04-24 23:54] VITALS: BP 100/49
[2019-04-25] VITALS (7 sets, daily range): BP systolic 91–99; BP diastolic 42–51
--- NOTE | 2019-04-25 05:56 | NUR ---
PT MAKING PROGRESS TOWARDS GOALS. NO OBSERVABLE BLEEDING NOTED OVERNIGHT. NO BOWEL MOVEMENT OVERNIGHT. DENIES ANY COMPLAINTS. CONTINUE TO MONITOR.
[2019-04-25] MEDS ORDERED: VANCOCIN 125 M125 M1 PO ×2 (06:16→06:18)
[2019-04-25 07:13] LABS: CALCIUM 8.4 mg/dL (8.5-10.1); CREATININE 2.5 mg/dL (0.7-1.3); POTASSIUM 4.2 mmol/L (3.5-5.1)
[2019-04-25 07:15] LABS: HEMATOCRIT 22.9 % (42.0-52.0); HEMOGLOBIN 7.5 gm/dL (14.0-18.0); MCHC 32.7 g/dL (28.0-37.0); RBC 2.2 mil/uL (4.50-6.00); RDW 15.4 % (10.5-14.5); WBC 4.5 thou/uL (4.0-11.0)
[2019-04-25 07:25] LABS: URINE BILIRUBIN NEGATIVE (Negative); URINE BLOOD NEGATIVE (Negative); URINE CLARITY CLEAR; URINE COLOR YELLOW; URINE GLUCOSE-RANDOM* NEGATIVE (Negative); URINE KETONES NEGATIVE (Negative); URINE LEUKOCYTES 1+ (Negative); URINE NITRITE NEGATIVE (Negative); URINE PROTEIN (DIPSTICK) NEGATIVE (Negative); URINE UROBILINOGEN 0.2 E.U./dl (0.2-1.0)
[2019-04-25 08:56] LABS: BACTERIA 1-9 Few /HPF (None Seen); CRYSTALS None Seen /LPF (None Seen); HYALINE CASTS 0-3 Few /LPF (None Seen); SQUAMOUS 0-3 Few /LPF (0-3); URINE RBC None Seen /HPF (0-2); URINE WBC 6-15 Few /HPF (0-5)
--- NOTE | 2019-04-25 10:00 | NUR ---
PT TRANSFERRED WITH SLIDE BOARD AND PT TO WHEELCHAIR WITH GOOD STRENGTH...FALL PREC IN PLACE..
--- NOTE | 2019-04-25 12:23 | HC ---
[facility] [place] [address] CONSULTATION Name: IRMA BLANCAS Room #: 354-P ADM IN M.R.#: [id number] Admission: 04/24/19 Attend Phys: Ankit Schumacher MD Discharge: Date of : 33 Report #: [id number] THIS REPORT FOR: cc: Alan Lemus MD, Eric K. MD Geha, Daniel J. MD ~ THIS REPORT FOR: //name// CC: Alan Schumacher DATE OF SERVICE: 04/24/2019 INFECTIOUS DISEASE CONSULTATION REASON FOR CONSULTATION: Evaluate right wrist septic arthritis and tenosynovitis in the setting of progressive anemia. HISTORY OF PRESENT ILLNESS: The patient was an 83-year-old, who initially evaluated in January where he was diagnosed with streptococcus Dysgalactiae bacteremia and suspected septic right wrist. Organism was sensitive to penicillin. Orthopedic Surgery evaluated and followed along. He was treated with a prolonged course of IV antibiotic therapy. Overall, he did not improve and was taken to surgery on 04/04/2019, Dr. Yanira Schwartz. He has underlying diabetes, peripheral vascular disease, and gouty arthritis. There was evidence of osteomyelitis, flexor tenosynovitis, and septic wrist. He underwent surgical debridement. Cultures were no growth except for one culture from broth only grew a Staph epidermidis. This was felt most likely contaminant. He was continued on ertapenem postoperatively. He was seen in the outpatient clinic last week. It was noted that he had progressive anemia. His hemoglobin had grown 9-9.4 during his hospital stay in March. Today, obtain further information regarding his hemoglobin down to 6.7. Case was discussed with Dr. Lemus, his primary care and he was hospitalized for further intervention. He has had no fever, chills, or sweats. He has been fatigued. No headache. No chest pain, no nausea or vomiting. Stools have been soft without diarrhea. He does have a history of C. difficile colitis and has been on vancomycin while on systemic antibiotics. He is now 20 days post-surgical debridement of his wrist. Plan was to continue 4-6 weeks of IV therapy and following his inflammatory markers. ALLERGIES: AMLODIPINE, QUINAPRIL, AND TICLOPIDINE. MEDICATIONS: As noted on his MAR including ertapenem. PAST MEDICAL HISTORY, FAMILY HISTORY, AND SOCIAL HISTORY: Unchanged from his previous consultation last month. [address] [address] CONSULTATION Name: IRMA BLANCAS Room #: 354-P [facility] IN M.R.#: [id number] Admission: 04/24/19 Attend Phys: Ankit Schumacher MD Discharge: Date of : 33 Report #: [id number] REVIEW OF SYSTEMS: Ten-point review was negative other than what has been described above. PHYSICAL EXAMINATION: VITAL SIGNS: Afebrile and hemodynamically stable. GENERAL: He was alert, cooperative, and pleasant, in no acute distress. HEENT: Eyes, without scleral icterus. Mouth without mucositis. SKIN: Without rash or decubitus. He did have some venous stasis changes, which are chronic in the right lower extremity. No palpable adenopathy. LUNGS: Clear to auscultation. HEART: Regular, without murmur, gallop, or rub. ABDOMEN: Soft and nontender. No hepatosplenomegaly or mass. EXTREMITIES: Left AKA incision was unremarkable and intact. Right wrist incision was well approximated. There was 1+ swelling. No erythema. Limited range of motion to the wrist. Decreased motion in his fingers. There was no flexion in the small finger. He had overall improved range of motion from last visit. IMPRESSION: Progressive anemia, etiology yet to be determined. Right wrist osteomyelitis, septic arthritis and tenosynovitis, improving following surgical debridement. Chronic kidney disease, underlying coronary artery disease, gouty arthritis. RECOMMENDATIONS: 1. We will continue IV antibiotic therapy for treatment of his right wrist, streptococcal complicated infection. He is now 20 days into a planned 6-week course of therapy. 2. Continue anemia workup and blood transfusion as outlined by Internal Medicine. <ELECTRONICALLY SIGNED> By: Hardik Almanzar MD 04/25/19 1223 2055 [id number] Hardik Almanzar MD /nt
--- NOTE | 2019-04-25 16:41 | NUR ---
INITIAL ASSESSMENT: SW reviewed chart and spoke with nursing and attending physician. Pt was admitted from home due to anemia. Pt had EGD earlier today. Pt with hx of right wrist osteomyelitis. Pt was recently discharged home with [facility] for home IV infusion. SW met with pt at bedside. Introduced role of SW. Pt is alert/orientated x 4. Pt reports she lives at home with his . Pt with hx of left AKA. Pt has a walker, hospital bed and w/c at home. Pt's PCP is Dr. Alan Lemus. Pt's goal is to return home and resume HH services and home IV infusion if needed. SW is following to assist as needed with discharge planning.
--- NOTE | 2019-04-25 18:00 | NUR ---
PT HAD A LARGE FORMED STOOL MODERATE BROWN AND IT WAS POSITIVE OCCULT BLOOD..
[2019-04-26 03:33] VITALS: BP 80/46
--- NOTE | 2019-04-26 06:37 | NUR ---
ASSUMED CARE AT 1900. SOFT BP'S OVERNIGHT; PT C/O FEELING COLD, BUT OTHERWISE DENIES FEELING LIGHTHEADED, DIZZY, OR OTHERWISE SYMPTOMATIC FOR ANEMIA/HYPOTENSION. WAS IN AFIB WITH A BBB IN THE 70-80'S OVERNIGHT. DENIES SOB, PAIN, OR NAUSEA. HAD A MODERATE SIZED, DARK GREEN STOOL OVERNIGHT, BUT DID NOT MAKE ANY URINE. REQUESTED SOMETHING TO HELP HIM SLEEP, OBTAINED ORDER FOR MELATONIN. NO OTHER CONCERNS, WILL CONTINUE TO MONITOR.
[2019-04-26 07:31] VITALS: BP 91/55
[2019-04-26 13:02] LABS: HEMATOCRIT 24.7 % (42.0-52.0); HEMOGLOBIN 8.1 gm/dL (14.0-18.0)
--- NOTE | 2019-04-26 14:07 | PATH ---
[facility] [address] [place] [address] PATHOLOGY RPT PROCEDURE Name: IRMA BLANCAS Room #: 354-P ADM IN M.R.#: [id number] Admission: 04/24/19 Date of : 33 Discharge: Report #: [id number] Path Case #: [id number] [facility] Accession Number: [id number] . 01 Material submitted: . stomach - BIOPSY OF GASTRIC POLYP . 01 Clinical history: . None provided . 02 Diagnosis: Stomach, "gastric polyp", biopsy: - Fundic gland polyp with mild chronic inflammation. . (SKM:mml; 04/26/2019) [facility] 04/26/2019 0927 Local . 02 Electronically signed: . Chepe Randhawa MD, Pathologist NPI- [id number] . 01 Gross description: . The specimen is received in formalin, labeled "Irma Blancas, biopsy of gastric polyp". Received are two segments of pale vang soft tissue measuring 0.4 cm each in maximum dimensions. The specimen is submitted entirely in cassette A1. (CAA; 04/25/2019) Q[facility]/QAC 04/25/2019 1746 Local . 02 Pathologist provided ICD-10: K31.7, K29.50 . 02 CPT . 677730 Specimen Comment: A courtesy copy of this report has been sent to [phone] Specimen Comment: [phone], Specimen Comment: Report sent to ,DR RAMIREZ / DR HAMILTON Specimen Comment: A duplicate report has been generated due to demographic updates. Performed at: 01 [place] [id number] [address] [id number] MD Emanuel South MD Phone: [phone] Performed at: [address] [id number] [address] [address] PATHOLOGY RPT PROCEDURE Name: IRMA BLANCAS Room #: 354-P [facility] IN M.R.#: [id number] Admission: 04/24/19 Date of : 33 Discharge: Report #: [id number] Path Case #: [id number] MD Maya Guthrie MD Phone: [phone]
[2019-04-26 15:25] VITALS: BP 101/60
--- NOTE | 2019-04-26 16:17 | NUR ---
DISCHARGE PLANNING. HOME WITH HOME HEALTH SERVICES. PATIENT REFERRAL FAXED TO [facility]. CALL PLACED TO [facility], SPOKE WITH SANDRA, INTAKE. SANDRA STATES PATIENT IS CURRENT WITH [facility]. SANDRA TO FACILITATE ONCE DISCHARGE/RESUMPTION OF HH ORDERS RECEIVED. FOLLOWING.
[2019-04-26 16:26] VITALS: BP 101/60
--- NOTE | 2019-04-26 16:57 | NUR ---
PT UP IN THE CHAIR, DENIES ANY PAIN OR NEED. Call light in reach and chair alarm on. pt progressing towards care. Will continue to monitor.
--- NOTE | 2019-04-26 17:34 | NUR ---
SW reviewed chart and spoke with nursing and attending physician. Pt to have colonoscopy. c4 planner faxed referral to [facility]. Pt is currently on service. [facility] is following to assist as needed with discharge planning.
[2019-04-26 19:34] VITALS: BP 102/62
[2019-04-27 03:09] VITALS: BP 106/56
--- NOTE | 2019-04-27 05:22 | NUR ---
ASSUMED CARE AT 1900. PT DENIES PAIN, NAUSEA, OR SOB. ASSISTED FROM W/C TO BED WITH A SLIDE BOARD, PT DID MOST OF THE WORK HIMSELF, ONLY NEEDED HELP STABLIZING THE BOARD. HAD ONE SMALL EPISODE OF STOOL LEAKAGE, REQUIRING PAD CHANGE. HAS BEEN AFIB WITH A BBB AND HR IN 80-90'S OVERNIGHT. PLAN TO START BOWEL PREP IN THE AFTERNOON TODAY, WITH A COLONOSCOPY SCHEDULED FOR WEDNESDAY. NO OTHER CONCERNS, WILL CONTINUE TO MONITOR.
[2019-04-27 05:55] LABS: HEMATOCRIT 24.6 % (42.0-52.0); HEMOGLOBIN 7.9 gm/dL (14.0-18.0); MCH 33.2 pg (26.0-34.0); MCHC 32.2 g/dL (28.0-37.0); RBC 2.39 mil/uL (4.50-6.00); RDW 15.1 % (10.5-14.5); WBC 4.9 thou/uL (4.0-11.0)
[2019-04-27 06:03] LABS: CALCIUM 8.1 mg/dL (8.5-10.1); CREATININE 2.6 mg/dL (0.7-1.3); POTASSIUM 3.9 mmol/L (3.5-5.1)
[2019-04-27 07:26] VITALS: BP 98/62
[2019-04-27 16:16] VITALS: BP 112/78
[2019-04-27 19:38] VITALS: BP 91/58
--- NOTE | 2019-04-27 19:47 | NUR ---
pt is A&OX3, PT 'S VS are stable, pt denies pain and N/V today, pt has started medications for colonoscopy at 1600pm, pt has BM x2 times by this time.
[2019-04-28 04:32] VITALS: BP 106/54
--- NOTE | 2019-04-28 06:18 | NUR ---
ASSUMED CARE AT 1900. PT FINISHING BOWEL PREP THIS EVENING, DECLINED HS MELATONIN SINCE HE HAD BOWEL FREQUENCY. AFIB WITH BBB ON TELE, HR IN 80'S. LAST BM ABOUT 0430, WAS LIQUID BUT STILL BROWN COLORED WITH SOME SMALL PARTICLES PRESENT. DENIED PAIN OR SOB OVERNIGHT. NO OTHER CONCERNS, WILL CONTINUE TO MONITOR.
[2019-04-28 07:33] VITALS: BP 96/62
[2019-04-28 13:20] VITALS: BP 106/59
[2019-04-28 14:01] VITALS: BP 106/52
[2019-04-28] MEDS ORDERED: FLUCONAZOLE 10100 MG PO (14:44)
[2019-04-28 15:25] VITALS: BP 98/52
--- NOTE | 2019-04-28 15:32 | NUR ---
SW reviewed chart and spoke with nursing and attending physician. Pt is medically stable for discharge home today. Pt to resume HH services with [facility] and home IV infusion services through [facility]. SW met with pt at bedside to provide update. Pt is agreeable with discharge. Pt's w/c at bedside. Pt states that his family can be notified once discharge orders are written. Pt will need w/c van transportation home. neighborhood planner faxed finalized discharge orders/summary to [facility] and [facility]. Contact info for and [facility] placed in pt's discharge summary. No additional SW needs at this time, but is available to assist should needs arise.
--- NOTE | 2019-04-28 19:54 | NUR ---
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
== END 2019-04-28 18:48 | disposition home health service (06) | DRG 378 ==
LOC: 3W 14:07
PROVIDERS: Nurse Practitioner; ADMIT Internal Medicine
PROC: 30233N1 Transfusion of Nonautologous Red Blood Cells into Peripheral Vein, Percutaneous Approach (ICD-10-PCS; principal; 2019-04-25)
PROC: 0DB68ZX Excision of Stomach, Via Natural or Artificial Opening Endoscopic, Diagnostic (ICD-10-PCS; principal; 2019-04-25)
PROC: 0DBM8ZZ Excision of Descending Colon, Via Natural or Artificial Opening Endoscopic (ICD-10-PCS; 2019-04-28)
DX: K57.31 Diverticulosis of large intestine without perforation or abscess with bleeding (principal); N18.5 Chronic kidney disease, stage 5; M86.8X8 Other osteomyelitis, other site; B37.81 Candidal esophagitis; E46 Unspecified protein-calorie malnutrition; I25.10 Atherosclerotic heart disease of native coronary artery without angina pectoris; I10 Essential (primary) hypertension; E78.5 Hyperlipidemia, unspecified; M10.9 Gout, unspecified; K31.7 Polyp of stomach and duodenum; N40.0 Benign prostatic hyperplasia without lower urinary tract symptoms; G47.00 Insomnia, unspecified; E83.42 Hypomagnesemia; E11.69 Type 2 diabetes mellitus with other specified complication; D63.8 Anemia in other chronic diseases classified elsewhere; E11.22 Type 2 diabetes mellitus with diabetic chronic kidney disease; M65.9 Synovitis and tenosynovitis, unspecified; B95.4 Other streptococcus as the cause of diseases classified elsewhere; Z89.612 Acquired absence of left leg above knee; Z95.1 Presence of aortocoronary bypass graft; Z80.0 Family history of malignant neoplasm of digestive organs; Z86.010 Personal history of colon polyps; Z87.11 Personal history of peptic ulcer disease; Z68.28 Body mass index [BMI] 28.0-28.9, adult; Z79.82 Long term (current) use of aspirin; Z79.899 Other long term (current) drug therapy
CPT/HCPCS: 10779; 62110; 62900; 70005